=== PATIENT | female | born 1945 | race Caucasian/White ===

== ENCOUNTER → 2016-11-12 | Outpatient (CLI) | payer BC, MEDICARE ==
[2016-04-24 16:24] VITALS: BP 150/67
[~2016-11-12] MED LIST: TRAM-29 PO
--- NOTE | 2016-11-12 09:05 | RAD ---
Examination: 2 views of the chest History: History of congestion. Comparison: 06/21/2016 Findings: The cardiomediastinal silhouette grossly appears unremarkable. There is no acute infiltrate or visualized pneumothorax identified. Ossified granuloma identified in the right midlung, and right hilar calcified lymph nodes grossly similar to prior exam. Impression: No acute cardiopulmonary findings.
== END | disposition home or self-care (01) ==
LOC: DXRADRC 08:25
PROVIDERS: ATTEND Physician Assistant Medical
DX: R09.89 Other specified symptoms and signs involving the circulatory and respiratory systems (principal); R05 Cough
CPT/HCPCS: 71020

== ENCOUNTER → 2016-12-22 | Outpatient (CLI) | payer BC, MEDICARE ==
[2016-04-24 16:24] VITALS: BP 150/67
--- NOTE | 2016-12-22 12:45 | RAD ---
EXAM: MAMMO MARICARMEN SCREENING BILATERAL. HISTORY: Screening. COMPARISON: 12/12/2015 and 11/15/2014. FINDINGS: 2-D and 3-D tomosynthesis mammograms were obtained of both breasts in the CC and MLO projections. Computer-aided detection (CAD) was utilized. The breast parenchyma is heterogeneously dense which could reduce sensitivity of mammography (tissue density C). No dominant suspicious mass, suspicious microcalcifications, or architectural distortion is identified. Small well-circumscribed mass, previously described as a cyst, is again seen in the left breast at 2:00. IMPRESSION: No mammographic evidence of malignancy. BI-RADS CATEGORY: 2 BENIGN FINDING RECOMMENDED FOLLOW-UP: 12M 12 MONTH FOLLOW-UP PQRS compliance statement: Patient information was entered into a reminder system with a target due date for the next mammogram. Mammography is a sensitive method for finding small breast cancers, but it does not detect them all and is not a substitute for careful clinical examination. A negative mammogram does not negate a clinically suspicious finding and should not result in delay in biopsying a clinically suspicious abnormality. "Our facility is accredited by the [employer] Mammography Program."
== END | disposition home or self-care (01) ==
LOC: MAMMO 10:47
PROVIDERS: ATTEND Nurse Practitioner Family
DX: Z12.31 Encounter for screening mammogram for malignant neoplasm of breast (principal)
CPT/HCPCS: 77063; G0202; 77067

== ENCOUNTER → 2016-12-29 | Outpatient (CLI) | payer BC, MEDICARE ==
[2016-04-24 16:24] VITALS: BP 150/67
--- NOTE | 2016-12-29 15:59 | RAD ---
Indication ovarian failure. Screen for osteoporosis/osteopenia. The lumbar spine and right hip were evaluated. Note is made of a previous bone density study 11/12/2014. That study however is not available and no report is available associated without exam. In the lumbar spine the average bone mild density is approximately 1.1 g/cc. The T score of -0.8 is normal. In the right hip the average bone mild density is approximately 0.83 g/cc. Corresponding average T score is -1.4. There is, however, more focal demineralization in the neck where the average bone mineral density is approximately 0.72 g/cc with a corresponding T score of -2.7. IMPRESSION: Normal bone mineral density in the lumbar spine. The right hip is at least osteopenic
== END | disposition home or self-care (01) ==
LOC: DXRAD 15:05
PROVIDERS: ATTEND Nurse Practitioner Family
DX: Z13.820 Encounter for screening for osteoporosis (principal); M85.88 Other specified disorders of bone density and structure, other site; Z78.0 Asymptomatic menopausal state; Z72.0 Tobacco use
CPT/HCPCS: 77080

== ENCOUNTER 2017-04-03 12:15 | Emergency (ER) | payer BC, MEDICARE ==
[~2017-04-03] VITALS: Ht 152.4 cm; Wt 68.0 kg
[~2017-04-03 12:15] MED LIST changes: -TRAM-29 PO; +TRAM-48 PO
[2017-04-03] MEDS ORDERED: PRED-220 PO (12:37)
--- NOTE | 2017-04-03 12:37 | PHYS DOC ---
Past History Past Medical History: CAD, Hypertension, TIA Past Surgical History: Tonsillectomy, Other Alcohol Use: Rarely Drug Use: None Adult General Chief Complaint Chief Complaint: SKIN PROBLEM HPI HPI Patient is a 71 year old female who presents with complaint of rash for the past 5 days. Patient states that she started getting a rash around her left eye as well as on her right hand and left knee which she states was due to exposure to poison reggie at home. Patient states that she was working outside around poison reggie started getting symptoms within one to 2 days. The patient states that she has been having a significant amount of itching associated with her symptoms. Patient went to her primary doctor's office 2 days ago and received a steroid shot at that time. Patient states that this did not resolve her symptoms. Patient denies any drainage to the left eye and denies any pain associated with her rash. Due to worsening symptoms patient came to the emergency department for evaluation. Review of Systems Review of Systems Constitutional: Denies fever or chills [] Eyes: Denies change in visual acuity, redness, or eye pain [] HENT: Denies nasal congestion or sore throat [] Respiratory: Denies cough or shortness of breath [] Cardiovascular: Denies chest pain or edema [] GI: Denies abdominal pain, nausea, vomiting, bloody stools or diarrhea [] : Denies dysuria or hematuria [] Musculoskeletal: Denies back pain or joint pain [] Integument: Skin rash to face, right hand, and left knee [] Neurologic: Denies headache, focal weakness or sensory changes [] Allergies Allergies Allergies Coded Allergies Type Severity Reaction Last Updated Verified Iodinated Contrast Media - IV Dye Allergy Intermediate 04/24/16 Yes Sulfa (Sulfonamide Antibiotics) Allergy Unknown 04/24/16 Yes Physical Exam Physical Exam Constitutional: Well developed, well nourished, no acute distress, non-toxic appearance. [] HENT: Normocephalic, atraumatic, bilateral external ears normal, oropharynx moist, no oral exudates, nose normal. [] Eyes: PERRLA, EOMI, left periorbital erythema present, mild soft tissue swelling , nonindurated, nontender to palpation, conjunctiva normal, no discharge. [] Neck: Normal range of motion, no tenderness, supple, no stridor. [] Cardiovascular:Heart rate regular rhythm, no murmur [] Lungs & Thorax: Bilateral breath sounds clear to auscultation [] Abdomen: Bowel sounds normal, soft, no tenderness, no masses, no pulsatile masses. [] Skin: Warm, dry, linear crop of vesicles on dorsum of right hand and anterior aspect of left knee. [] Back: No tenderness, no CVA tenderness. [] Extremities: No tenderness, no cyanosis, no clubbing, ROM intact, no edema. [] Neurologic: Alert and oriented X 3, normal motor function, normal sensory function, no focal deficits noted. [] Current Patient Data Vital Signs Vital Signs Date Time Temp Pulse Resp B/P (MAP) Pulse Ox O2 Delivery O2 Flow Rate FiO2 04/03/17 12:50 55 18 120/57 (78) 95 Room Air 04/03/17 12:25 98.1 Lab Results None performed EKG EKG Not performed [] Radiology/Procedures Radiology/Procedures Not performed [] Course & Med Decision Making Course & Med Decision Making Pertinent Labs and Imaging studies reviewed. (See chart for details) Patient's symptoms appear consistent with contact dermatitis. It was given 50 mg of oral prednisone in the emergency department. The patient will continue on a prednisone taper for treatment of contact dermatitis. Advised follow-up with primary doctor in 3-5 days if symptoms are not improving and return to emergency department for any worsening symptoms. Patient voiced understanding and in agreement with treatment plan. Dragon Disclaimer Dragon Disclaimer This chart was dictated in whole or in part using Voice Recognition software in a busy, high-work load, and often noisy Emergency Department environment. It may contain unintended and wholly unrecognized errors or omissions. Departure Departure: Impression: Primary Impression: Contact dermatitis Disposition: 01 HOME, SELF-CARE Condition: STABLE Referrals: KAT SAAB APRN (PCP) Patient Instructions: Contact Dermatitis Additional Instructions: Follow-up to primary doctor in 3-5 days. Return to the emergency department for any worsening symptoms. Scripts Prednisone (PREDNISONE) 10 Mg Tablet 10 MG PO UD for PREDNISONE TAPER, #39 TAB 0 Refills Take 3 tablets by mouth twice a day for 3 days, then take 2 tablets by mouth twice a day for 3 days, then take 1 tablet by mouth twice a day for 3 days, then take 1 tablet by mouth daily x 3 days, then stop. Prov: SINDHU PEOPLES MD 04/03/17 Problem Qualifiers Primary Impression: Contact dermatitis Contact dermatitis type: allergic Contact dermatitis trigger: non-food plants Qualified Codes: L23.7 - Allergic contact dermatitis due to plants, except food SINDHU PEOPLES MD Apr 03, 2017 12:37
[2017-04-03 12:50] VITALS: BP 120/57
[2017-04-03] MEDS ORDERED: predniSONE 10 MG TABLET PO ONE (13:15)
== END 2017-04-03 12:57 | disposition home or self-care (01) ==
LOC: ER 12:15
DX: L25.9 Unspecified contact dermatitis, unspecified cause (principal); I25.10 Atherosclerotic heart disease of native coronary artery without angina pectoris; I10 Essential (primary) hypertension; Z86.73 Personal history of transient ischemic attack (TIA), and cerebral infarction without residual deficits; Z88.2 Allergy status to sulfonamides; Z91.041 Radiographic dye allergy status
CPT/HCPCS: 99283

== ENCOUNTER → 2017-07-23 | Outpatient (CLI) | payer BC, MEDICARE ==
[~2017-07-23] MED LIST changes: +PRED-220 PO
[2017-07-23 11:40] LABS: ALBUMIN 3.6 g/dL (3.4-5.0); ALBUMIN/GLOBULIN RATIO 1.1 (1.0-1.7); CALCIUM 9.8 mg/dL (8.5-10.1); CREATININE 0.8 mg/dL (0.6-1.0); GFR 70.3; MAGNESIUM 1.7 mg/dL (1.8-2.4); TOTAL BILIRUBIN 0.6 mg/dL (0.2-1.0); TOTAL PROTEIN 6.9 g/dL (6.4-8.2)
== END | disposition home or self-care (01) ==
LOC: LAB 10:55
PROVIDERS: ATTEND Nurse Practitioner
DX: E78.5 Hyperlipidemia, unspecified (principal); R25.2 Cramp and spasm
CPT/HCPCS: 36415; 80053; 80061; 83735

== ENCOUNTER 2017-08-10 16:52 | Emergency (ER) | payer BC, MEDICARE ==
[~2017-08-10] VITALS: Ht 154.9 cm; Wt 68.0 kg
--- NOTE | 2017-08-10 17:29 | EKG ---
[address] [address] Test Date: 2017-08-10 Test Time: 17:15:35 Pat Name: GOOD LERMA Department: Room: Gender: F Director Game: DENN[place] : 1945 Requested By: MARCIA VALDERRAMA Order Number: [id number] Reading MD: Dominguez Vasquez MD Measurements Intervals Diana Rate: 65 P: 53 WV: 162 QRS: 39 QRSD: 80 T: 51 QT: 372 QTc: 388 Interpretive Statements SINUS RHYTHM Electronically Signed On 08-16-2017 14:19:40 CAN SLIDER by Dominguez Vasquez MD
[2017-08-10] MEDS ORDERED: IV NORMAL SALINE 500ML 500 ML IV ONE (17:45)
--- NOTE | 2017-08-10 17:57 | PHYS DOC ---
Past History Past Medical History: CAD, Hypertension, Hypothyroid, [place], TIA Past Surgical History: Cholecystectomy, Tonsillectomy, Other Alcohol Use: Rarely Drug Use: None Adult General Chief Complaint Chief Complaint: COUGH HPI HPI 71-year-old nonsmoking female patient complaining of cough with clear sputum for the last 2 weeks. Patient complaining of subjective fever and chills that gradually getting worse. Patient complaining of episode of shortness of breath with exertion and during episodes of cough without chest pain, sick contact, vomiting and diarrhea. Patient complaining of nasal congestion and sore throat giving cough and states she was seen at [facility] and treated with ampicillin without improvement of her condition. Review of Systems Review of Systems Constitutional: Reports fever and chills [] Eyes: Denies change in visual acuity, redness, or eye pain [] HENT: Reports nasal congestion , denies sore throat [] Respiratory: Reports cough and shortness of breath [] Cardiovascular: No additional information not addressed in HPI [] GI: Denies abdominal pain, nausea, vomiting, bloody stools or diarrhea [] : Denies dysuria or hematuria [] Musculoskeletal: Denies back pain or joint pain [] Integument: Denies rash or skin lesions [] Neurologic: Denies headache, focal weakness or sensory changes [] Endocrine: Denies polyuria or polydipsia [] All other systems were reviewed and found to be within normal limits, except as documented in this note. Current Medications Current Medications Current Medications Medications (Trade) Dose Ordered Sig/Rita Start Time Stop Time Status Last Admin Dose Admin Albuterol/ Ipratropium (Duoneb) 3 ml 1X ONCE 08/10/17 18:00 08/10/17 18:01 08/10/17 17:43 3 ML Methylprednisolone Sodium Succinate (SOLU-Medrol 125MG VIAL) 125 mg 1X ONCE 08/10/17 18:00 08/10/17 18:01 Sodium Chloride 500 ml @ 0 mls/hr 1X ONCE 08/10/17 17:45 08/10/17 17:46 DC Allergies Allergies Allergies Coded Allergies Type Severity Reaction Last Updated Verified Iodinated Contrast Media - IV Dye Allergy Intermediate 04/24/16 Yes Sulfa (Sulfonamide Antibiotics) Allergy Unknown 04/24/16 Yes Physical Exam Physical Exam Constitutional: Well developed, well nourished, moderate distress, non-toxic appearance. [] HENT: Normocephalic, atraumatic, bilateral external ears normal, oropharynx moist, no oral exudates, nose normal, several cold sores on lips [] Eyes: PERRLA, EOMI, conjunctiva normal, no discharge. [] Neck: Normal range of motion, no tenderness, supple, no stridor. [] Cardiovascular:Heart rate regular rhythm, no murmur [] Lungs & Thorax: Bilateral mild rhonchi Abdomen: Bowel sounds normal, soft, no tenderness, no masses, no pulsatile masses. [] Skin: Warm, dry, no erythema, no rash. [] Back: No tenderness, no CVA tenderness. [] Extremities: No tenderness, no cyanosis, no clubbing, ROM intact, no edema. [] Neurologic: Alert and oriented X 3, normal motor function, normal sensory function, no focal deficits noted. [] Psychologic: Affect normal, judgement normal, mood normal. [] Current Patient Data Vital Signs Vital Signs Date Time Temp Pulse Resp B/P (MAP) Pulse Ox O2 Delivery O2 Flow Rate FiO2 08/10/17 17:44 97 Room Air 08/10/17 16:52 98.1 68 18 EKG EKG [EKG interpreted by me. EKG at 1715 showed] normal sinus rhythm at rate of [address] and T-wave abnormality Radiology/Procedures Radiology/Procedures Chest x-ray showed normal mediastinum and normal heart size no obvious free air pneumothorax or opacity. Course & Med Decision Making Course & Med Decision Making Labs and chest x-ray is pending. Patient's care transferred to incoming ER physician at 1800. Wiliam Davis I took over care at 6 PM and went over results of labs and imaging with patient. Patient says that she is feeling much better after steroid and breathing treatment in the emergency department and she would like to go home. I told her about her elevated BNP and she says that she has had multiple echocardiograms and she has never had any signs or symptoms of congestive heart failure. Certainly her BNP is slightly elevated but nothing too much significance and based off her physical exam this seems more of a upper respiratory infection with postnasal drip that is making her wheeze and be short of breath. She was still wheezing on my examination so I ordered another albuterol treatment and her aeration improved. Patient has normal vital signs including an auction saturation of 96% on room air and she is able to ambulate with no significant shortness of breath. Given patient appears well with normal vital signs benign physical exam and workup she'll be discharged with instructions to use Nasonex [id number] with her albuterol inhaler more often in addition to starting a steroid and Tessalon for cough. Patient aware and agreeable with plan for discharge and verbalized understanding of the need for short-term follow-up in the strict ED return precautions discussed including worsening pain fevers shortness of breath or other general concerns. Dragon Disclaimer Dragon Disclaimer This electronic medical record was generated, in whole or in part, using a voice recognition dictation system. Departure Departure: Impression: Primary Impression: Cough Additional Impression: Elevated brain natriuretic peptide (BNP) level Disposition: 01 HOME, SELF-CARE Condition: STABLE Referrals: KAT SAAB APRN (PCP) Patient Instructions: Upper Respiratory Infection, Adult Additional Instructions: USE OTC NASONEX FOR YOUR SINUS CONGESTION. TAKE THE TESSALON FOR COUGH. USE YOUR ALBUTEROL EVERY 4 HOURS. FOLLOW WITH YOUR PCP LATER THIS WEEK AND COME BACK TO THE ED SOONER WITH WORSENING PAIN, SOA, OR OTHER GENERAL CONCERNS. THANK YOU! Scripts Benzonatate (TESSALON PERLE) 100 Mg Capsule 1 CAP PO TID, #15 CAP Prov: LULU ANDERSON DO 08/10/17 Prednisone (PREDNISONE) 50 Mg Tablet 1 TAB PO DAILY, #4 TAB Prov: LULU ANDERSON DO 08/10/17 Albuterol Sulfate (PROAIR HFA INHALER) 8.5 Gm Hfa.aer.ad 1 PUFF INH PRN Q4HRS Y for SHORTNESS OF BREATH, #1 INHALER 0 Refills Prov: LULU ANDERSON DO 08/10/17 Problem Qualifiers MARCIA VALDERRAMA MD Aug 10, 2017 17:57 LULU ANDERSON DO Aug 10, 2017 19:28
[2017-08-10 17:58] VITALS: BP 130/55
[2017-08-10] MEDS ORDERED: methylPREDNISolone SOD SUCC PF 125 MG/2 ML VIAL. IV ONE (18:00)
[2017-08-10] MEDS ORDERED: IPRATRPIUM/ALBUTEROL 0.5/2.5MG 3 ML NEBU. NEB ONE (18:00)
[2017-08-10 18:04] LABS: ALBUMIN 3.5 g/dL (3.4-5.0); CALCIUM 9.5 mg/dL (8.5-10.1); CREATININE 0.7 mg/dL (0.6-1.0); POTASSIUM 3.7 mmol/L (3.5-5.1); TOTAL BILIRUBIN 0.4 mg/dL (0.2-1.0)
[2017-08-10 18:06] LABS: BASO % 1 % (0-3); EOS # 0.2 x10^3/uL (0.0-0.7); EOS % 4 % (0-3); HEMATOCRIT 38.8 % (36.0-47.0); HEMOGLOBIN 13.2 g/dL (12.0-15.5); LYMPH # 2.2 x10^3/uL (1.0-4.8); LYMPH % 32 % (24-48); MEAN CORPUSCULAR HEMOGLOBIN 30 pg (25-35); MEAN CORPUSCULAR HGB CONC 34 g/dL (31-37); MEAN CORPUSCULAR VOLUME 89 fL (79-100); MONO # 0.6 x10^3/uL (0.0-1.1); MONO % 9 % (0-9); NEUT # 3.8 x10^3uL (1.8-7.7); NEUT % 55 % (31-73); PLATELET COUNT 299 x10^3/uL (140-400); RED BLOOD COUNT 4.38 x10^6/uL (3.50-5.40); RED CELL DISTRIBUTION WIDTH 12.7 % (11.5-14.5)
[2017-08-10] MEDS ORDERED: ALBUTEROL SULFATE 2.5 MG/3 ML NEBU. NEB ONE (18:45)
[2017-08-10] MEDS ORDERED: BENZ100C PO (19:28)
[2017-08-10] MEDS ORDERED: ALBU8.5H8 INH (19:28)
[2017-08-10] MEDS ORDERED: PRED50TA PO (19:28)
--- NOTE | 2017-08-11 07:55 | RAD ---
Indication: Productive cough for 2 weeks. Technique: Two-view chest radiograph was obtained. Comparison is from November 12, 2016. Findings: The lungs are clear. Calcified granuloma on the right is stable. Calcified right hilar lymph nodes are noted. The cardiopulmonary silhouette is within normal limits. There is no pleural effusion. The bony structures are intact. Leads overlie the patient. Impression: No acute thoracic findings.
[2017-08-14] MEDS ORDERED: PRED20TA PO (10:05)
[2017-08-14] MEDS ORDERED: PROM118S2 PO (10:05)
[2017-08-14] MEDS ORDERED: AZIT250T6 PO (10:05)
== END 2017-08-10 19:56 | disposition home or self-care (01) ==
LOC: ER 16:52
DX: R05 Cough (principal); R79.89 Other specified abnormal findings of blood chemistry; I25.10 Atherosclerotic heart disease of native coronary artery without angina pectoris; I10 Essential (primary) hypertension; E03.9 Hypothyroidism, unspecified; I25.2 Old myocardial infarction; Z86.73 Personal history of transient ischemic attack (TIA), and cerebral infarction without residual deficits; Z88.2 Allergy status to sulfonamides; Z91.041 Radiographic dye allergy status
CPT/HCPCS: 99285; J2930; J7040; J7613; J7620; 36415; 71020; 80053; 83605; 83880; 84484; 85025; 87040; 93005; 94640; 96361; 96374

== ENCOUNTER 2017-08-13 12:09 | Observation (INO) | payer BC, MEDICARE ==
[~2017-08-13] VITALS: Ht 154.9 cm; Wt 70.3 kg
[~2017-08-13 12:09] MED LIST changes: +ALBU8.5H8 INH; +BENZ100C PO; +PRED50TA PO
--- NOTE | 2017-08-13 12:26 | ED.ADGEN ---
Past History Past Medical History: CAD, Hypertension, Hypothyroid, [place], TIA Past Surgical History: Cholecystectomy, Tonsillectomy, Other Alcohol Use: Rarely Drug Use: None Adult General HPI HPI Patient is a 71-year-old female complains of cough. 71-year-old female complains of cough. She was seen 2 days earlier and treated with steroids and antibiotics, worse. She's not having copious productive sputum. She is having dyspnea on exertion. She did have a mildly elevated BNP that states in the past she's had normal echoes. She's not been having any fevers. She does have fever blisters to her mouth which started about the same time as a cough. They've also been getting worse. She's not had any oral lesions. No chest pain or peripheral edema. She finished a course of amoxicillin. Review of Systems Review of Systems Constitutional: Denies fever or chills Eyes: Denies change in visual acuity, redness, or eye pain HENT: Denies nasal congestion or sore throat Respiratory:HPI Cardiovascular: No additional information not addressed in HPI GI: Denies abdominal pain, nausea, vomiting, bloody stools or diarrhea : Denies dysuria or hematuria Musculoskeletal: Denies back pain or joint pain Integument: Denies rash or skin lesions Neurologic: Denies headache, focal weakness or sensory changes Endocrine: Denies polyuria or polydipsia All other systems were reviewed and found to be within normal limits, except as documented in this note. Current Medications Current Medications Current Medications Medications (Trade) Dose Ordered Sig/Rita Start Time Stop Time Status Last Admin Dose Admin Albuterol Sulfate (Ventolin) 2.5 mg 1X ONCE 08/13/17 13:15 08/13/17 13:16 DC Azithromycin 500 mg/Sodium Chloride 250 ml @ 250 mls/hr 1X ONCE 08/13/17 13:45 08/13/17 14:44 DC 08/13/17 16:01 250 MLS/HR Ceftriaxone Sodium 1 gm/ Sodium Chloride 50 ml @ 100 mls/hr 1X ONCE 08/13/17 13:45 08/13/17 14:14 DC 08/13/17 15:23 100 MLS/HR Allergies Allergies Allergies Coded Allergies Type Severity Reaction Last Updated Verified Iodinated Contrast- Oral and IV Dye Allergy Intermediate 04/24/16 Yes Sulfa (Sulfonamide Antibiotics) Allergy Unknown 04/24/16 Yes Physical Exam Physical Exam Constitutional: Well developed, well nourished, no acute distress, non-toxic appearance. HENT: Normocephalic, atraumatic, bilateral external ears normal, oropharynx moist, no oral exudates, nose normal. Fever blister around mouth. Eyes: PERRLA, EOMI, conjunctiva normal, no discharge. Neck: Normal range of motion, no tenderness, supple, no stridor. Cardiovascular:Heart rate regular rhythm, no murmur Lungs & Thorax: Bilateral breath sounds clear to auscultation; when she coughs she does bring up stephen colored secretions. Abdomen: Bowel sounds normal, soft, no tenderness, no masses, no pulsatile masses. Skin: Warm, dry, no erythema, no rash. Back: No tenderness, no CVA tenderness. Extremities: No tenderness, no cyanosis, no clubbing, ROM intact, no edema. Neurologic: Alert and oriented X 3, normal motor function, normal sensory function, no focal deficits noted. Psychologic: Affect normal, judgement normal, mood normal. Current Patient Data Vital Signs Vital Signs Date Time Temp Pulse Resp B/P (MAP) Pulse Ox O2 Delivery O2 Flow Rate FiO2 08/13/17 13:47 118/58 (78) 08/13/17 13:17 97 Room Air 08/13/17 12:25 97.8 60 20 Lab Results Laboratory Tests Test 08/13/17 12:50 08/13/17 13:22 White Blood Count 13.8 x10^3/uL (4.0-11.0) #H Red Blood Count 4.59 x10^6/uL (3.50-5.40) Hemoglobin 13.7 g/dL (12.0-15.5) Hematocrit 40.7 % (36.0-47.0) Mean Corpuscular Volume 89 fL (79-100) Mean Corpuscular Hemoglobin 30 pg (25-35) Mean Corpuscular Hemoglobin Concent 34 g/dL (31-37) Red Cell Distribution Width 12.9 % (11.5-14.5) Platelet Count 295 x10^3/uL (140-400) Neutrophils (%) (Auto) 72 % (31-73) Lymphocytes (%) (Auto) 19 % (24-48) L Monocytes (%) (Auto) 9 % (0-9) Eosinophils (%) (Auto) 0 % (0-3) Basophils (%) (Auto) 0 % (0-3) Neutrophils # (Auto) 9.9 x10^3uL (1.8-7.7) H Lymphocytes # (Auto) 2.6 x10^3/uL (1.0-4.8) Monocytes # (Auto) 1.3 x10^3/uL (0.0-1.1) H Eosinophils # (Auto) 0.0 x10^3/uL (0.0-0.7) Basophils # (Auto) 0.0 x10^3/uL (0.0-0.2) Sodium Level 141 mmol/L (136-145) Potassium Level 3.3 mmol/L (3.5-5.1) L Chloride Level 101 mmol/L (98-107) Carbon Dioxide Level 30 mmol/L (21-32) Anion Gap 10 (6-14) Blood Urea Nitrogen 19 mg/dL (7-20) Creatinine 0.9 mg/dL (0.6-1.0) Estimated GFR (Cockcroft-Gault) 61.4 BUN/Creatinine Ratio 21 (6-20) H Glucose Level 119 mg/dL (70-99) H Calcium Level 9.7 mg/dL (8.5-10.1) Total Bilirubin 0.6 mg/dL (0.2-1.0) Aspartate Amino Transferase (AST) 19 U/L (15-37) Alanine Aminotransferase (ALT) 46 U/L (14-59) Alkaline Phosphatase 59 U/L (46-116) Troponin I Quantitative < 0.017 ng/mL (0-0.055) EP-Nom-Y-Type Natriuretic Peptide 329 pg/mL (0-124) H Total Protein 6.8 g/dL (6.4-8.2) Albumin 3.5 g/dL (3.4-5.0) Albumin/Globulin Ratio 1.1 (1.0-1.7) Influenza Type A (Rapid) Negative (NEGATIVE) Influenza Type B (Rapid) Negative (NEGATIVE) EKG EKG NSR with rate of 57 without ischemic changes Radiology/Procedures Radiology/Procedures CXR without pneumonia, chf or infiltrate int by me. Course & Med Decision Making Course & Med Decision Making Pertinent Labs and Imaging studies reviewed. (See chart for details) CXR is clear. Mildly elevated WBC count. BNP is mildly elevated. I will dose with antibiotics and steroids. D/W Dr. Zuniga who will admit. Patient does have an ENT doctor; findings on CT I thik can be addressed as an outpatinet. Dx: cough, difficulty breathing Final Impression Final Impression cough, difficulty breathing Problems: Dragon Disclaimer Dragon Disclaimer This electronic medical record was generated, in whole or in part, using a voice recognition dictation system. CLAIRE ALLRED MD Aug 13, 2017 12:26
--- NOTE | 2017-08-13 12:37 | EKG ---
[address] [address] Test Date: 2017-08-13 Test Time: 12:33:29 Pat Name: GOOD LERMA Department: Room: Gender: F Instantizer Operator: DENN[place] : 1945 Requested By: CLAIRE ALLRED Order Number: [id number] Reading MD: Measurements Intervals [place] Rate: 57 P: 56 WY: 144 QRS: 41 QRSD: 82 T: 38 QT: 400 QTc: 392 Interpretive Statements SINUS RHYTHM NORMAL ECG RI6.01 Unconfirmed report No previous ECG available for comparison
--- NOTE | 2017-08-13 12:58 | RAD ---
AP chest 08/13/2017 Clinical indication: Cough for 2 weeks. Comparison: Chest 08/10/2017. Findings: Cardiac and mediastinal silhouettes are unremarkable. Right hilar and parenchymal calcified granulomas. No pleural effusion, pneumothorax or focal consolidation. Impression: No acute cardiopulmonary abnormality.
[2017-08-13 13:03] LABS: BASO % 0 % (0-3); EOS % 0 % (0-3); HEMATOCRIT 40.7 % (36.0-47.0); HEMOGLOBIN 13.7 g/dL (12.0-15.5); LYMPH # 2.6 x10^3/uL (1.0-4.8); LYMPH % 19 % (24-48); MEAN CORPUSCULAR HEMOGLOBIN 30 pg (25-35); MEAN CORPUSCULAR HGB CONC 34 g/dL (31-37); MEAN CORPUSCULAR VOLUME 89 fL (79-100); MONO # 1.3 x10^3/uL (0.0-1.1); MONO % 9 % (0-9); NEUT # 9.9 x10^3uL (1.8-7.7); NEUT % 72 % (31-73); PLATELET COUNT 295 x10^3/uL (140-400); RED BLOOD COUNT 4.59 x10^6/uL (3.50-5.40); RED CELL DISTRIBUTION WIDTH 12.9 % (11.5-14.5); WHITE BLOOD COUNT 13.8 x10^3/uL (4.0-11.0)
[2017-08-13] MEDS ORDERED: ALBUTEROL SULFATE 2.5 MG/3 ML NEBU. NEB ONE (13:15)
[2017-08-13 13:21] LABS: ALBUMIN 3.5 g/dL (3.4-5.0); ALBUMIN/GLOBULIN RATIO 1.1 (1.0-1.7); CALCIUM 9.7 mg/dL (8.5-10.1); CREATININE 0.9 mg/dL (0.6-1.0); GFR 61.4; POTASSIUM 3.3 mmol/L (3.5-5.1); TOTAL BILIRUBIN 0.6 mg/dL (0.2-1.0); TOTAL PROTEIN 6.8 g/dL (6.4-8.2)
[2017-08-13] MEDS ORDERED: AZITHROMYCIN 500 MG in IV NORMAL SALINE 250ML 250 ML IV ONE (13:45)
[2017-08-13 13:56] LABS: INFLUENZA A PATIENT NEGATIVE (NEGATIVE); INFLUENZA B PATIENT NEGATIVE (NEGATIVE)
[2017-08-13] MEDS ORDERED: methylPREDNISolone SOD SUCC PF 125 MG/2 ML VIAL. IV ONE (14:00)
[2017-08-13 15:00] VITALS: BP 160/72
[2017-08-13] MEDS ORDERED: CARV25TA2 PO (15:32)
[2017-08-13] MEDS ORDERED: LOSA100T6 PO (15:32)
[2017-08-13] MEDS ORDERED: MONT10TA9 PO (15:33)
[2017-08-13] MEDS ORDERED: ATOR10TA60 PO (15:33)
[2017-08-13] MEDS ORDERED: HYDR12.58 PO (15:33)
[2017-08-13] MEDS ORDERED: ASPI-630 PO (15:34)
--- NOTE | 2017-08-13 18:53 | PDOC1 ---
History of Present Illness Reason for Visit: Cough History of Present Illness Pt states she has felt ill for about 2 weeks. 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 Denies fever or hemoptysis. States that a few months ago she was having SOA when she would walk to her car. Says she got her heart checked and it was "fine" per Dr. Valentino. She then saw a eclectic doctor and was told she did not have COPD but since she had childhood asthma, she may have adult asthma. She was started on Singulair and did a lot better after that. With this current illness, she has been seen once at [facility] and given "amoxicillin for a cold." She finished 4 days of a 7 day course. She has taken no other meds other than Robitussin. She was also seen in the ER twice. This time she has been given IV steroids and abx. She denies chest pain , dizziness, fever, weight loss, blurry vision, n/v/d, abd pain, leg swelling, numbness/weakness. She did have a runny nose and sore throat when this all started, but says these have resolved. She smoked from age [age], but quit when she had her first heart attack. Chief Complaint: COUGH Allergies: Coded Allergies: Iodinated Contrast- Oral and IV Dye (Verified Allergy, Intermediate, ) Sulfa (Sulfonamide Antibiotics) (Verified Allergy, Unknown, 04/24/16) Past Medical History Cardiac: CAD, HTN, hyperipidemia Pulmonary: Asthma Past Surgical History: Cholecystectomy, Other (Parathyroidectomy) Family History: No pertinent hx Past Social History Smoke: Quit Alcohol: none Drugs: None Review of Systems Review Of Systems Fourteen system , review of systems has been reviewed. See HPI for pertinent positives and negative responses, other zepeda all other systems are negative, non pertinent or non contributory Allergies: Coded Allergies: Iodinated Contrast- Oral and IV Dye (Verified Allergy, Intermediate, ) Sulfa (Sulfonamide Antibiotics) (Verified Allergy, Unknown, 04/24/16) Medications Current Medications Albuterol Sulfate (Ventolin) 2.5 mg 1X ONCE NEB ; Start 08/13/17 at 13:15; Stop 08/13/17 at 13:16; Status DC Methylprednisolone Sodium Succinate (SOLU-Medrol 125MG VIAL) 125 mg 1X ONCE IV Last administered on 08/13/17 15:12; Start 08/13/17 at 14:00; Stop at 14:01; Status DC Ceftriaxone Sodium 1 gm/ Sodium Chloride 50 ml @ 100 mls/hr 1X ONCE IV Last administered on 08/13/17 15:23; Start 08/13/17 at 13:45; Stop 08/13/17 at 14 :14; Status DC Azithromycin 500 mg/Sodium Chloride 250 ml @ 250 mls/hr 1X ONCE IV Last administered on 08/13/17 16:01; Start 08/13/17 at 13:45; Stop 08/13/17 at 14 :44; Status DC Active Scripts Active Proair Hfa Inhaler (Albuterol Sulfate) 8.5 Gm Hfa.aer.ad 1 Puff INH PRN Q4HRS PRN Reported Aspirin 81 Mg Tab.chew 81 Mg PO DAILY Montelukast Sodium Tablet (Montelukast Sodium) 10 Mg Tablet 1 Tab PO DAILY Hydrochlorothiazide Tablet (Hydrochlorothiazide) 12.5 Mg Tablet 1 Tab PO DAILY Atorvastatin Calcium 10 Mg Tablet 0.5 Tab PO DAILY Carvedilol 25 Mg Tablet 1 Tab PO BID Losartan Potassium 100 Mg Tablet 100 Mg PO DAILY Exam Vital Signs Vital Signs Date Time Temp Pulse Resp B/P (MAP) Pulse Ox O2 Delivery O2 Flow Rate FiO2 08/13/17 15:00 98.4 54 18 160/72 (101) 96 Room Air General Appearance: Alert, Oriented X3, Cooperative, No acute distress HEENT: Atraumatic, PERRLA, EOMI, Mucous membr. moist/pink, Other (Neck supple, full ROM, no JVD, no LAD, no thyromegaly) Respiratory: Other (Breath sounds diminished bilaterally without wheezes, rales , or rhonchi) Heart: Regular rate, Normal S1, Normal S2, No murmurs Abdominal: Soft, No tenderness, No hepatospenomegaly, No masses Extremities: No edema, Normal pulses, No tenderness/swelling Skin: No rashes, No breakdown Neuro: Normal speech, Strength at 5/5 X4 ext, Normal tone, Sensation intact, Cranial nerves 3-12 NL, Reflexes 2+ Psych/Mental Status: Mental status NL, Mood NL Assessment/Plan Assessment/Plan 1. COPD exacerbation: Given pt's hx of smoking, I believe there is likely at least a mild component of COPD. We will treat w/ abx and steroids. Antitussives, nebs. Pt on RA. 2. CAD: Continue home meds. NO chest pain. 3. DVT proph: SCD's, low risk. Pt ambulatory. COURSE Allergies Coded Allergies Type Severity Reaction Last Updated Verified Iodinated Contrast- Oral and IV Dye Allergy Intermediate 04/24/16 Yes Sulfa (Sulfonamide Antibiotics) Allergy Unknown 04/24/16 Yes Laboratory Tests Test 08/13/17 12:50 08/13/17 13:22 White Blood Count 13.8 x10^3/uL (4.0-11.0) Red Blood Count 4.59 x10^6/uL (3.50-5.40) Hemoglobin 13.7 g/dL (12.0-15.5) Hematocrit 40.7 % (36.0-47.0) Mean Corpuscular Volume 89 fL (79-100) Mean Corpuscular Hemoglobin 30 pg (25-35) Mean Corpuscular Hemoglobin Concent 34 g/dL (31-37) Red Cell Distribution Width 12.9 % (11.5-14.5) Platelet Count 295 x10^3/uL (140-400) Neutrophils (%) (Auto) 72 % (31-73) Lymphocytes (%) (Auto) 19 % (24-48) Monocytes (%) (Auto) 9 % (0-9) Eosinophils (%) (Auto) 0 % (0-3) Basophils (%) (Auto) 0 % (0-3) Neutrophils # (Auto) 9.9 x10^3uL (1.8-7.7) Lymphocytes # (Auto) 2.6 x10^3/uL (1.0-4.8) Monocytes # (Auto) 1.3 x10^3/uL (0.0-1.1) Eosinophils # (Auto) 0.0 x10^3/uL (0.0-0.7) Basophils # (Auto) 0.0 x10^3/uL (0.0-0.2) Sodium Level 141 mmol/L (136-145) Potassium Level 3.3 mmol/L (3.5-5.1) Chloride Level 101 mmol/L (98-107) Carbon Dioxide Level 30 mmol/L (21-32) Anion Gap 10 (6-14) Blood Urea Nitrogen 19 mg/dL (7-20) Creatinine 0.9 mg/dL (0.6-1.0) Estimated GFR (Cockcroft-Gault) 61.4 BUN/Creatinine Ratio 21 (6-20) Glucose Level 119 mg/dL (70-99) Calcium Level 9.7 mg/dL (8.5-10.1) Total Bilirubin 0.6 mg/dL (0.2-1.0) Aspartate Amino Transf (AST/SGOT) 19 U/L (15-37) Alanine Aminotransferase (ALT/SGPT) 46 U/L (14-59) Alkaline Phosphatase 59 U/L (46-116) Troponin I Quantitative < 0.017 ng/mL (0-0.055) KV-Rmf-Q-Type Natriuretic Peptide 329 pg/mL (0-124) Total Protein 6.8 g/dL (6.4-8.2) Albumin 3.5 g/dL (3.4-5.0) Albumin/Globulin Ratio 1.1 (1.0-1.7) Influenza Type A (Rapid) Negative (NEGATIVE) Influenza Type B (Rapid) Negative (NEGATIVE) Current Medications Medications (Trade) Dose Ordered Sig/Rita Route PRN Reason Start Time Stop Time Status Last Admin Dose Admin Albuterol Sulfate (Ventolin) 2.5 mg 1X ONCE NEB 08/13/17 13:15 08/13/17 13:16 DC Methylprednisolone Sodium Succinate (SOLU-Medrol 125MG VIAL) 125 mg 1X ONCE IV 08/13/17 14:00 08/13/17 14:01 DC 08/13/17 15:12 Ceftriaxone Sodium 1 gm/ Sodium Chloride 50 ml @ 100 mls/hr 1X ONCE IV 08/13/17 13:45 08/13/17 14:14 DC 08/13/17 15:23 Azithromycin 500 mg/Sodium Chloride 250 ml @ 250 mls/hr 1X ONCE IV 08/13/17 13:45 08/13/17 14:44 DC 08/13/17 16:01 Vital Signs Date Time Temp Pulse Resp B/P (MAP) Pulse Ox O2 Delivery O2 Flow Rate FiO2 08/13/17 15:00 98.4 54 18 160/72 (101) 96 Room Air AP chest 08/13/2017 Clinical indication: Cough for 2 weeks. Comparison: Chest 08/10/2017. Findings: Cardiac and mediastinal silhouettes are unremarkable. Right hilar and parenchymal calcified granulomas. No pleural effusion, pneumothorax or focal consolidation. Impression: No acute cardiopulmonary abnormality. MONY HART MD Aug 13, 2017 18:53
[2017-08-13 18:56] VITALS: BP 115/63
[2017-08-13] MEDS ORDERED: ALBUTEROL SULFATE 2.5 MG/3 ML NEBU. NEB PRN (19:00)
[2017-08-13 19:35] LABS: BILIRUBIN,URINE NEG (NEG); CLARITY,URINE CLEAR; COLOR,URINE YELLOW; GLUCOSE,URINE NEG (NEG); NITRITE,URINE NEG (NEG); UROBILINOGEN,URINE 0.2 mg/dL (0.2 mg/dL)
[2017-08-13 19:36] LABS: BACTERIA,URINE 0 /HPF (0-FEW); SQUAMOUS EPITHELIAL CELL,UR MOD /LPF
[2017-08-13] MEDS ORDERED: PROMETH/CODEINE 6.25/10MG 5 ML SYRUP. PO PRN (20:15)
[2017-08-13] MEDS: BENZONATATE 100 MG CAPSULE. PO SCH (20:35)
[2017-08-13] MEDS ORDERED: ATORVASTATIN CALCIUM 10 MG TABLET. PO SCH (21:00)
[2017-08-13 22:20] VITALS: BP 146/69
[2017-08-14 05:46] VITALS: BP 142/65
[2017-08-14 07:30] LABS: BASO % 0 % (0-3); EOS % 0 % (0-3); HEMOGLOBIN 13.1 g/dL (12.0-15.5); LYMPH # 1.3 x10^3/uL (1.0-4.8); LYMPH % 12 % (24-48); MEAN CORPUSCULAR HEMOGLOBIN 30 pg (25-35); MEAN CORPUSCULAR HGB CONC 34 g/dL (31-37); MEAN CORPUSCULAR VOLUME 88 fL (79-100); MONO # 0.6 x10^3/uL (0.0-1.1); MONO % 6 % (0-9); NEUT # 9.2 x10^3uL (1.8-7.7); NEUT % 83 % (31-73); PLATELET COUNT 311 x10^3/uL (140-400); RED BLOOD COUNT 4.43 x10^6/uL (3.50-5.40); RED CELL DISTRIBUTION WIDTH 12.9 % (11.5-14.5); WHITE BLOOD COUNT 11.2 x10^3/uL (4.0-11.0)
[2017-08-14 07:44] LABS: ALBUMIN 3.1 g/dL (3.4-5.0); ALBUMIN/GLOBULIN RATIO 0.9 (1.0-1.7); CALCIUM 9.3 mg/dL (8.5-10.1); CREATININE 0.8 mg/dL (0.6-1.0); GFR 70.3; POTASSIUM 3.9 mmol/L (3.5-5.1); TOTAL BILIRUBIN 0.3 mg/dL (0.2-1.0); TOTAL PROTEIN 6.4 g/dL (6.4-8.2)
[2017-08-14] MEDS ORDERED: ASPIRIN 81 MG TAB.CHEW PO SCH (08:00)
[2017-08-14] MEDS ORDERED: CARVEDILOL 12.5 MG TABLET PO SCH (08:00)
[2017-08-14] MEDS ORDERED: AZITHROMYCIN 250 MG TABLET. PO SCH (09:00)
[2017-08-14] MEDS ORDERED: predniSONE 20 MG TABLET PO SCH (09:00)
[2017-08-14] MEDS ORDERED: MONTELUKAST 10 MG TABLET. PO SCH (09:00)
[2017-08-14] MEDS ORDERED: LOSARTAN 50 MG TABLET. PO SCH (09:00)
[2017-08-14] MEDS ORDERED: hydroCHLOROthiazide 12.5 MG CAPSULE PO SCH (09:00)
[2017-08-14] MEDS: BENZONATATE 100 MG CAPSULE. PO SCH (09:13)
[2017-08-14] MEDS ORDERED: PROM118S2 PO (10:05)
[2017-08-14] MEDS ORDERED: PRED20TA PO (10:05)
[2017-08-14] MEDS ORDERED: AZIT250T6 PO (10:05)
--- NOTE | 2017-08-14 10:08 | DISCH ---
DISCHARGE INSTRUCTIONS-DC Condition on Discharge Condition on Discharge: Stable Problems: Activity after Discharge Activity Instructions for Disc: Activity as tolerated Diet after Discharge Diet after Discharge: Cardiac Checks after Discharge Checks after discharge: Check your Temp as needed Contacting the DRRoselyn after DC Call your doctor for: If your condition worsens Follow-Up Follow up with: PCP next week MONY HART MD Aug 14, 2017 10:08
--- NOTE | 2017-08-14 10:12 | PDOC3 ---
Discharge Summary Discharge Summary Date of Admission Date of Admission: Aug 13, 2017 at 13:55 Admitting Diagnosis Dyspnea COPD exacerbation, acute on chronic Date of Discharge: Aug 14, 2017 Discharge Diagnosis COPD exacerbation. Laboratory Findings Laboratory Tests Test 08/13/17 12:50 08/13/17 13:22 08/13/17 16:05 08/14/17 06:59 White Blood Count 13.8 x10^3/uL (4.0-11.0) 11.2 x10^3/uL (4.0-11.0) Red Blood Count 4.59 x10^6/uL (3.50-5.40) 4.43 x10^6/uL (3.50-5.40) Hemoglobin 13.7 g/dL (12.0-15.5) 13.1 g/dL (12.0-15.5) Hematocrit 40.7 % (36.0-47.0) 39.0 % (36.0-47.0) Mean Corpuscular Volume 89 fL (79-100) 88 fL (79-100) Mean Corpuscular Hemoglobin 30 pg (25-35) 30 pg (25-35) Mean Corpuscular Hemoglobin Concent 34 g/dL (31-37) 34 g/dL (31-37) Red Cell Distribution Width 12.9 % (11.5-14.5) 12.9 % (11.5-14.5) Platelet Count 295 x10^3/uL (140-400) 311 x10^3/uL (140-400) Neutrophils (%) (Auto) 72 % (31-73) 83 % (31-73) Lymphocytes (%) (Auto) 19 % (24-48) 12 % (24-48) Monocytes (%) (Auto) 9 % (0-9) 6 % (0-9) Eosinophils (%) (Auto) 0 % (0-3) 0 % (0-3) Basophils (%) (Auto) 0 % (0-3) 0 % (0-3) Neutrophils # (Auto) 9.9 x10^3uL (1.8-7.7) 9.2 x10^3uL (1.8-7.7) Lymphocytes # (Auto) 2.6 x10^3/uL (1.0-4.8) 1.3 x10^3/uL (1.0-4.8) Monocytes # (Auto) 1.3 x10^3/uL (0.0-1.1) 0.6 x10^3/uL (0.0-1.1) Eosinophils # (Auto) 0.0 x10^3/uL (0.0-0.7) 0.0 x10^3/uL (0.0-0.7) Basophils # (Auto) 0.0 x10^3/uL (0.0-0.2) 0.0 x10^3/uL (0.0-0.2) Sodium Level 141 mmol/L (136-145) 142 mmol/L (136-145) Potassium Level 3.3 mmol/L (3.5-5.1) 3.9 mmol/L (3.5-5.1) Chloride Level 101 mmol/L (98-107) 104 mmol/L (98-107) Carbon Dioxide Level 30 mmol/L (21-32) 28 mmol/L (21-32) Anion Gap 10 (6-14) 10 (6-14) Blood Urea Nitrogen 19 mg/dL (7-20) 20 mg/dL (7-20) Creatinine 0.9 mg/dL (0.6-1.0) 0.8 mg/dL (0.6-1.0) Estimated GFR (Cockcroft-Gault) 61.4 70.3 BUN/Creatinine Ratio 21 (6-20) 25 (6-20) Glucose Level 119 mg/dL (70-99) 144 mg/dL (70-99) Calcium Level 9.7 mg/dL (8.5-10.1) 9.3 mg/dL (8.5-10.1) Total Bilirubin 0.6 mg/dL (0.2-1.0) 0.3 mg/dL (0.2-1.0) Aspartate Amino Transf (AST/SGOT) 19 U/L (15-37) 15 U/L (15-37) Alanine Aminotransferase (ALT/SGPT) 46 U/L (14-59) 48 U/L (14-59) Alkaline Phosphatase 59 U/L (46-116) 56 U/L (46-116) Troponin I Quantitative < 0.017 ng/mL (0-0.055) CG-Alv-O-Type Natriuretic Peptide 329 pg/mL (0-124) Total Protein 6.8 g/dL (6.4-8.2) 6.4 g/dL (6.4-8.2) Albumin 3.5 g/dL (3.4-5.0) 3.1 g/dL (3.4-5.0) Albumin/Globulin Ratio 1.1 (1.0-1.7) 0.9 (1.0-1.7) Influenza Type A (Rapid) Negative (NEGATIVE) Influenza Type B (Rapid) Negative (NEGATIVE) Urine Collection Type Unknown Urine Color Yellow Urine Clarity Clear Urine pH 6.0 Urine Specific [place] <=1.005 Urine Protein Neg (NEG-TRACE) Urine Glucose (UA) Neg mg/dL (NEG) Urine Ketones (Stick) Neg mg/dL (NEG) Urine Blood Trace (NEG) Urine Nitrite Neg (NEG) Urine Bilirubin Neg (NEG) Urine Urobilinogen Dipstick 0.2 mg/dL (0.2 mg/dL) Urine Leukocyte Esterase Mod (NEG) Urine RBC 3-5 /HPF (0-2) Urine WBC 5-10 /HPF (0-4) Urine Squamous Epithelial Cells Mod /LPF Urine Transitional Epithelial Cells Occ /LPF Urine Bacteria 0 /HPF (0-FEW) Urine Mucus Slight /LPF Hospital Course Pt had 2 weeks of cough and SOA. Hx of smoking, 33 pack/yr hx. Hx of CAD. Pt treated w/ IV steroids and abx. WBC down from 13K to 11K in 1 day. Feeling better. Pt can take PO meds at home, and is not requiring O2. Plan to send home w/ close f/u with her PCP. Continue PRN albuterol and Singulair. Rx for prednisone burst, Zithromax, and PRN codeine cough medicine. EXAM: A&O x 3 NAD CV: RRR, no m/r/g Chest: Diminished BS in bases, otherwise clear w/ normal resp effort Neck: No JVD, no LAD OP: MMM Abd: Soft NTTP Skin: Cold sores on lips Condition at Discharge: Stable/improved Home Meds Active Scripts Promethazine Hcl/Codeine (PROMETHAZINE-CODEINE SYRUP) 118 Ml Syrup, 5 ML PO PRN Q6HRS Y for COUGH, #4 OZ Prov:MONY HART MD 08/14/17 Albuterol Sulfate (PROAIR HFA INHALER) 8.5 Gm Hfa.aer.ad, 1 PUFF INH PRN Q4HRS Y for SHORTNESS OF BREATH, #1 INHALER 0 Refills Prov:LULU ANDERSON DO 08/10/17 Reported Medications Aspirin (ASPIRIN) 81 Mg Tab.chew, 81 MG PO DAILY, TAB 08/13/17 Montelukast Sodium (MONTELUKAST SODIUM TABLET) 10 Mg Tablet, 1 TAB PO DAILY, # 30 TAB 5 Refills 08/13/17 Hydrochlorothiazide (HYDROCHLOROTHIAZIDE TABLET) 12.5 Mg Tablet, 1 TAB PO DAILY , #30 TAB 5 Refills 08/13/17 Atorvastatin Calcium (ATORVASTATIN CALCIUM) 10 Mg Tablet, 0.5 TAB PO DAILY, #30 TAB 5 Refills 08/13/17 Carvedilol (CARVEDILOL) 25 Mg Tablet, 1 TAB PO BID, #180 TAB 1 Refill 08/13/17 Losartan Potassium (LOSARTAN POTASSIUM) 100 Mg Tablet, 100 MG PO DAILY, TAB 08/13/17 Inpatient Meds Current Medications Albuterol Sulfate (Ventolin) 2.5 mg 1X ONCE NEB ; Start 08/13/17 at 13:15; Stop 08/13/17 at 13:16; Status DC Methylprednisolone Sodium Succinate (SOLU-Medrol 125MG VIAL) 125 mg 1X ONCE IV Last administered on 08/13/17t 15:12; Start 08/13/17 at 14:00; Stop at 14:01; Status DC Ceftriaxone Sodium 1 gm/ Sodium Chloride 50 ml @ 100 mls/hr 1X ONCE IV Last administered on 08/13/17 15:23; Start 08/13/17 at 13:45; Stop 08/13/17 at 14 :14; Status DC Azithromycin 500 mg/Sodium Chloride 250 ml @ 250 mls/hr 1X ONCE IV Last administered on 08/13/17t 16:01; Start 08/13/17 at 13:45; Stop 08/13/17 at 14 :44; Status DC Albuterol Sulfate (Ventolin) 2.5 mg PRN Q6HRS PRN NEB SHORTNESS OF BREATH; Start 08/13/17 at 19:00 Benzonatate (Tessalon Perle) 100 mg [id number] PO Last administered on 08/14/17 09:13; Start 08/13/17 at 21:00 Prednisone (Prednisone) 20 mg BID PO Last administered on 08/14/17 09:13; Start 08/14/17 at 09:00 Azithromycin (Zithromax) 250 mg DAILY PO Last administered on 08/14/17 09:13 ; Start 08/14/17 at 09:00; Stop 08/17/17 at 09:01 Aspirin (Children'S Aspirin) 81 mg DAILY08 PO Last administered on 08/14/17 09:13; Start 08/14/17 at 08:00 Atorvastatin Calcium (Lipitor) 5 mg QHS PO Last administered on 08/13/17 20: 35; Start 08/13/17 at 21:00 Montelukast Sodium (Singulair) 10 mg DAILY PO Last administered on 08/14/17 09:12; Start 08/14/17 at 09:00 Carvedilol (Coreg) 25 mg BIDWMEALS PO Last administered on 08/14/17 09:12; Start 08/14/17 at 08:00 Hydrochlorothiazide (Microzide) 12.5 mg DAILY PO Last administered on 09:11; Start 08/14/17 at 09:00 Losartan Potassium (Cozaar) 100 mg DAILY PO Last administered on 08/14/17 09: 12; Start 08/14/17 at 09:00 Promethazine HCl/ Codeine (Phenergan With Codeine) 5 ml PRN Q6HRS PRN PO COUGH Last administered on 08/13/17 20:37; Start 08/13/17 at 20:15 Active Scripts Active Promethazine-Codeine Syrup (Promethazine Hcl/Codeine) 118 Ml Syrup 5 Ml PO PRN Q6HRS PRN Proair Hfa Inhaler (Albuterol Sulfate) 8.5 Gm Hfa.aer.ad 1 Puff INH PRN Q4HRS PRN Reported Aspirin 81 Mg Tab.chew 81 Mg PO DAILY Montelukast Sodium Tablet (Montelukast Sodium) 10 Mg Tablet 1 Tab PO DAILY Hydrochlorothiazide Tablet (Hydrochlorothiazide) 12.5 Mg Tablet 1 Tab PO DAILY Atorvastatin Calcium 10 Mg Tablet 0.5 Tab PO DAILY Carvedilol 25 Mg Tablet 1 Tab PO BID Losartan Potassium 100 Mg Tablet 100 Mg PO DAILY Activity: as tolerated Diet: Cardiac Follow-up Plan F/u with PCP in 1 week. MONY HART MD Aug 14, 2017 10:12
[2017-08-14 10:43] VITALS: BP 112/54
== END 2017-08-14 11:00 | disposition home or self-care (01) ==
LOC: ER 12:09 → INTOOBSV 13:55 → ICU 13:55 → 1 SOUTH 21:47
PROVIDERS: ADMIT Family Medicine; ATTEND Family Medicine
DX: J44.1 Chronic obstructive pulmonary disease with (acute) exacerbation (principal); E03.9 Hypothyroidism, unspecified; I10 Essential (primary) hypertension; E78.5 Hyperlipidemia, unspecified; I25.10 Atherosclerotic heart disease of native coronary artery without angina pectoris; Z79.82 Long term (current) use of aspirin; Z79.899 Other long term (current) drug therapy; Z86.73 Personal history of transient ischemic attack (TIA), and cerebral infarction without residual deficits; Z87.891 Personal history of nicotine dependence; Z90.49 Acquired absence of other specified parts of digestive tract; Z88.2 Allergy status to sulfonamides; Z88.8 Allergy status to other drugs, medicaments and biological substances
CPT/HCPCS: 36415; 71010; 71020; 80053; 81001; 83605; 83880; 84484; 85025; 87040; 87086; 87641; 87804; 93005; 94640; 96365; 96367; 96375; 99285; G0378; G0379; J0456; J0696; J2930; J7050; J7512

== ENCOUNTER 2018-01-12 11:22 | Emergency (ER) | payer BC, MEDICARE ==
[~2018-01-12] VITALS: Ht 154.9 cm; Wt 70.3 kg
[~2018-01-12 11:22] MED LIST changes: +ASPI-630 PO; +ATOR10TA60 PO; +AZIT250T6 PO; +CARV25TA2 PO; +HYDR12.58 PO; +LOSA100T6 PO; +MONT10TA9 PO; +PRED20TA PO; +PROM118S2 PO
--- NOTE | 2018-01-12 12:07 | RAD ---
4 views right knee 01/12/2018 11:55 AM Indication: PAIN, TWISTED YESTERDAY INCREASED PAIN WHEN BENDING Comparison: None available Findings: There is no acute fracture or dislocation. Articular surfaces are uninterupted and smooth. Soft tissues are unremarkable. Impression: No radiographic evidence of acute osseous abnormality. Electronically signed by: Mika Marie MD (01/12/2018 12:03 PM) [id number]
[2018-01-12] MEDS ORDERED: TRAM50TA PO (12:45)
--- NOTE | 2018-01-12 12:45 | PHYS DOC ---
Past History Past Medical History: CAD, Hypertension, Hypothyroid, MS, TIA Past Surgical History: Cholecystectomy, Tonsillectomy, Other Alcohol Use: None Drug Use: None Adult General Chief Complaint Chief Complaint: KNEE INJURY HPI HPI 72-year-old female patient with history of chronic right knee pain states she twisted her right knee yesterday and felt a pop in her knee and since then has sharp and throbbing pain in her knee that getting worse with walking and bending her knee. Patient denies focal neuro deficit, calf pain, history of DVT , fever and chills. Patient states she took Tylenol without improvement of her pain. Review of Systems Review of Systems Constitutional: Denies fever or chills [] Eyes: Denies change in visual acuity, redness, or eye pain [] HENT: Denies nasal congestion or sore throat [] Respiratory: Denies cough or shortness of breath [] Cardiovascular: No additional information not addressed in HPI [] GI: Denies abdominal pain, nausea, vomiting, bloody stools or diarrhea [] : Denies dysuria or hematuria [] Musculoskeletal: Denies back pain, reports joint pain [] Integument: Denies rash or skin lesions [] Neurologic: Denies headache, focal weakness or sensory changes [] Endocrine: Denies polyuria or polydipsia [] All other systems were reviewed and found to be within normal limits, except as documented in this note. Allergies Allergies Allergies Coded Allergies Type Severity Reaction Last Updated Verified Iodinated Contrast- Oral and IV Dye Allergy Intermediate 04/24/16 Yes Sulfa (Sulfonamide Antibiotics) Allergy Unknown 04/24/16 Yes Physical Exam Physical Exam Constitutional: Well developed, well nourished,mild distress, non-toxic appearance. [] HENT: Normocephalic, atraumatic Eyes: PERRLA, EOMI, conjunctiva normal, no discharge. [] Neck: Normal range of motion, no tenderness, supple, no stridor. [] Cardiovascular:Heart rate regular rhythm, no murmur [] Lungs & Thorax: Bilateral breath sounds clear to auscultation [] Extremities: No deformity, right knee with mild tenderness and painful range of motion without neurovascular deficit or edema Neurologic: Alert and oriented X 3, normal motor function, normal sensory function, no focal deficits noted. [] Psychologic: Affect normal, judgement normal, mood normal. [] EKG EKG [] Radiology/Procedures Radiology/Procedures [][place] [address] IMAGING REPORT Signed PATIENT: GOOD LERMA ACCOUNT: [id number] : 1945 LOCATION: ER AGE: 72 SEX: F EXAM STATUS: REG ER ORD. PHYSICIAN: MARCIA VALDERRAMA MD REASON: pain PROCEDURE: KNEE RIGHT 4V 4 views right knee 01/12/2018 11:55 AM Indication: PAIN, TWISTED YESTERDAY INCREASED PAIN WHEN BENDING Comparison: None available Findings: There is no acute fracture or dislocation. Articular surfaces are uninterupted and smooth. Soft tissues are unremarkable. Impression: No radiographic evidence of acute osseous abnormality. Electronically signed by: Mika Robles MD (01/12/2018 12:03 PM) [id number] DICTATED AND SIGNED BY: MIKA ROBLES MD DATE: 01/12/18 1202 CC: KAT SAAB APRN; MARCIA VALDERRAMA MD ~ Course & Med Decision Making Course & Med Decision Making Pertinent Imaging studies reviewed. (See chart for details) [[place] of patient in ER showed 72-year-old female patient with history of chronic knee pain and twisting injury yesterday with unremarkable physical exam except for limited range of motion. X-ray did not show acute finding. Jared wrap was applied and patient instructed to follow with her primary care physician and prescription for tramadol was given.] Dragon Disclaimer Dragon Disclaimer This electronic medical record was generated, in whole or in part, using a voice recognition dictation system. Departure Departure: Impression: Primary Impression: Strain of right knee Disposition: HOME, SELF-CARE (At 1245) Condition: STABLE Referrals: KAT SAAB APRN (PCP) Patient Instructions: Knee Sprain Additional Instructions: Apply ice on the affected area Follow-up with your primary care physician in 3-5 days Return to ER if not getting better Scripts Tramadol Hcl (TRAMADOL HCL) 50 Mg Tablet 50 MG PO PRN Q6HRS PRN for PAIN, #20 TAB Prov: MARCIA VALDERRAMA MD 01/12/18 MARCIA VALDERRAMA MD January 12, 2018 12:45
[2018-01-12 13:07] VITALS: BP 193/85
== END 2018-01-12 13:10 | disposition home or self-care (01) ==
LOC: ER 11:22
DX: S86.811A Strain of other muscle(s) and tendon(s) at lower leg level, right leg, initial encounter (principal); G89.29 Other chronic pain; I25.10 Atherosclerotic heart disease of native coronary artery without angina pectoris; I10 Essential (primary) hypertension; E03.9 Hypothyroidism, unspecified; I25.2 Old myocardial infarction; Z86.73 Personal history of transient ischemic attack (TIA), and cerebral infarction without residual deficits; Z88.2 Allergy status to sulfonamides; Z91.041 Radiographic dye allergy status; X50.1XXA Overexertion from prolonged static or awkward postures, initial encounter; Y93.89 Activity, other specified; Y99.8 Other external cause status; Y92.89 Other specified places as the place of occurrence of the external cause
CPT/HCPCS: 73564; 99284

== ENCOUNTER → 2018-01-20 | Outpatient (CLI) | payer MEDICARE, BC ==
[2018-01-12 13:07] VITALS: BP 193/85
[~2018-01-20] MED LIST changes: +TRAM50TA PO
--- NOTE | 2018-01-20 14:51 | RAD ---
EXAM: MAMMO MARICARMEN SCREENING BILATERAL. HISTORY: Screening. COMPARISON: December 22, 2016, December 12, 2015, November 15, 2014. FINDINGS: 2-D and 3-D tomosynthesis mammograms were obtained of both breasts in the CC and MLO projections. Computer-aided detection (CAD) was utilized. The breast parenchyma shows scattered fibroglandular densities. Breast parenchyma level B. No dominant suspicious mass, suspicious microcalcifications, or architectural distortion is identified. Small well-circumscribed mass involving the upper outer left breast which was previously described as a cyst is unchanged. IMPRESSION: No evidence of malignancy. BI-RADS CATEGORY: 2 BENIGN FINDING RECOMMENDED FOLLOW-UP: 12M 12 MONTH FOLLOW-UP PQRS compliance statement: Patient information was entered into a reminder system with a target due date for the next mammogram. Mammography is a sensitive method for finding small breast cancers, but it does not detect them all and is not a substitute for careful clinical examination. A negative mammogram does not negate a clinically suspicious finding and should not result in delay in biopsying a clinically suspicious abnormality. "Our facility is accredited by the [employer] Mammography Program."
== END | disposition home or self-care (01) ==
LOC: MAMMO 10:04
PROVIDERS: ATTEND Nurse Practitioner Family
DX: Z12.31 Encounter for screening mammogram for malignant neoplasm of breast (principal)
CPT/HCPCS: 77063; 77067

== ENCOUNTER 2018-04-03 15:44 | Emergency (ER) | payer BC, MEDICARE ==
[~2018-04-03] VITALS: Ht 154.9 cm; Wt 67.6 kg
[~2018-04-03 15:44] MED LIST changes: -PROM118S2 PO; +PROM118S5 PO
[2018-04-03] MEDS ORDERED: ONDANSETRON PF 4 MG/2 ML VIAL. IV ONE (16:15)
[2018-04-03 16:35] LABS: BASO % 0 % (0-3); EOS # 0.2 x10^3/uL (0.0-0.7); EOS % 2 % (0-3); HEMATOCRIT 45.3 % (36.0-47.0); HEMOGLOBIN 15.2 g/dL (12.0-15.5); LYMPH # 2.4 x10^3/uL (1.0-4.8); LYMPH % 33 % (24-48); MEAN CORPUSCULAR HEMOGLOBIN 30 pg (25-35); MEAN CORPUSCULAR HGB CONC 34 g/dL (31-37); MEAN CORPUSCULAR VOLUME 89 fL (79-100); MONO # 0.8 x10^3/uL (0.0-1.1); MONO % 11 % (0-9); NEUT % 54 % (31-73); PLATELET COUNT 267 x10^3/uL (140-400); RED BLOOD COUNT 5.08 x10^6/uL (3.50-5.40); RED CELL DISTRIBUTION WIDTH 13.4 % (11.5-14.5); WHITE BLOOD COUNT 7.4 x10^3/uL (4.0-11.0)
--- NOTE | 2018-04-03 16:46 | RAD ---
RS Compliance Statement: One or more of the following individualized dose reduction techniques were utilized for this examination: 1. Automated exposure control 2. Adjustment of the mA and/or kV according to patient size 3. Use of iterative reconstruction technique CT head without contrast 04/03/2018 4:30 PM INDICATION: Dizziness for one week COMPARISON: None available TECHNIQUE: Multiple axial CT images of the head were obtained from skull base through the vertex without intravenous contrast. FINDINGS: Head: Ventricles, sulci and basal cisterns are prominent compatible with mild generalized cerebral volume loss. There is no hydrocephalus. [place]-white matter differentiation is normal. There is no acute intracranial hemorrhage. There is no mass, mass effect or midline shift. Posterior fossa is normal in appearance. Atherosclerotic calcifications are visualized involving the cavernous segments of the internal carotid arteries. Dural based calcifications are present. Visualized portions of the orbits are normal. Paranasal sinuses are well aerated. Mastoid air cells are well aerated. Scalp and calvaria are normal. IMPRESSION: No acute intracranial hemorrhage. Electronically signed by: Crystal Sheppard MD (04/03/2018 4:43 PM) [id number]
--- NOTE | 2018-04-03 16:52 | EKG ---
[address] [address] Test Date: 2018-04-03 Test Time: 16:17:31 Pat Name: GOOD LERMA Department: Room: Gender: F Client Services Assistant: : 1945 Requested By: MARCIA VALDERRAMA Order Number: [id number] Reading MD: Measurements Intervals [place] Rate: 59 P: 56 NE: 162 QRS: 26 QRSD: 82 T: 38 QT: 386 QTc: 386 Interpretive Statements SINUS RHYTHM NORMAL ECG RI6.01 Unconfirmed report No previous ECG available for comparison
--- NOTE | 2018-04-03 16:55 | RAD ---
Chest, 2 views, 04/03/2018: HISTORY: Dizziness Comparison is made to a study from 08/13/2017. The heart size is normal. There is calcific plaquing of the aorta. There are granulomatous calcifications in the right chest. No pulmonary infiltrate is seen. There is no evidence of pleural fluid. Mild degenerative changes are evident in the spine. IMPRESSION: No acute cardiopulmonary abnormality is detected. Electronically signed by: Marcel Medina MD (04/03/2018 4:52 PM) [facility]
[2018-04-03 16:58] LABS: ALBUMIN 3.7 g/dL (3.4-5.0); CALCIUM 9.8 mg/dL (8.5-10.1); CREATININE 0.7 mg/dL (0.6-1.0); GFR 81.8; POTASSIUM 3.5 mmol/L (3.5-5.1); TOTAL BILIRUBIN 0.5 mg/dL (0.2-1.0); TOTAL PROTEIN 7.3 g/dL (6.4-8.2)
[2018-04-03 17:23] VITALS: BP 169/62
[2018-04-03 17:40] LABS: BACTERIA,URINE FEW /HPF (0-FEW); BILIRUBIN,URINE NEG (NEG); CLARITY,URINE HAZY; COLOR,URINE STRAW; GLUCOSE,URINE NEG (NEG); NITRITE,URINE NEG (NEG); RBC,URINE OCC /HPF (0-2); SQUAMOUS EPITHELIAL CELL,UR MOD /LPF; UROBILINOGEN,URINE 0.2 mg/dL (0.2 mg/dL)
[2018-04-03] MEDS ORDERED: MECL12.52 PO (18:01)
[2018-04-03] MEDS ORDERED: ONDA4TAB10 SL (18:01)
[2018-04-03] MEDS ORDERED: CIPR250T30 PO (18:01)
--- NOTE | 2018-04-03 18:01 | PHYS DOC ---
Past History Past Medical History: High Cholesterol, Hypertension Past Surgical History: Cholecystectomy Alcohol Use: None Drug Use: None Adult General Chief Complaint Chief Complaint: DIZZY/LIGHT HEADED HPI HPI 72-year-old female patient complaining of intermittent episodes of dizziness for the last 1 week that getting constant for the last 48 hours. Patient complaining of increasing of stiffness with movement of her head and standing position and denies chest pain, shortness of breath, nausea and vomiting, blurred vision, headache, change of hearing. Patient complaining of chronic tinnitus without new change. Patient states she was seen by her primary care physician and treated with [id number] antihistamines without improvement of her condition and per recommendation of her sister took medication for motion sickness with worsening of her condition. Review of Systems Review of Systems Constitutional: Denies fever or chills [] Eyes: Denies change in visual acuity, redness, or eye pain [] HENT: Denies nasal congestion or sore throat [] Respiratory: Denies cough or shortness of breath [] Cardiovascular: No additional information not addressed in HPI [] GI: Denies abdominal pain, nausea, vomiting, bloody stools or diarrhea [] : Denies dysuria or hematuria [] Musculoskeletal: Denies back pain or joint pain [] Integument: Denies rash or skin lesions [] Neurologic: Denies headache, focal weakness or sensory changes [] Endocrine: Denies polyuria or polydipsia [] All other systems were reviewed and found to be within normal limits, except as documented in this note. Current Medications Current Medications Current Medications Medications (Trade) Dose Ordered Sig/Rita Start Time Stop Time Status Last Admin Dose Admin Ondansetron HCl (Zofran) 4 mg 1X ONCE 04/03/18 16:15 04/03/18 16:23 DC 04/03/18 16:21 4 MG Allergies Allergies Allergies Coded Allergies Type Severity Reaction Last Updated Verified Iodinated Contrast- Oral and IV Dye Allergy Intermediate 04/03/18 Yes Sulfa (Sulfonamide Antibiotics) Allergy Unknown 04/03/18 Yes Physical Exam Physical Exam Constitutional: Well developed, well nourished, mild distress, non-toxic appearance. [] HENT: Normocephalic, atraumatic, bilateral external ears normal, oropharynx moist, no oral exudates, nose normal. [] Eyes: PERRLA, EOMI, conjunctiva normal, no discharge. [] Neck: Normal range of motion, no tenderness, supple, no stridor. [] Cardiovascular:Heart rate regular rhythm, no murmur [] Lungs & Thorax: Bilateral breath sounds clear to auscultation [] Abdomen: Bowel sounds normal, soft, no tenderness, no masses, no pulsatile masses. [] Skin: Warm, dry, no erythema, no rash. [] Back: No tenderness, no CVA tenderness. [] Extremities: No tenderness, no cyanosis, no clubbing, ROM intact, no edema. [] Neurologic: Alert and oriented X 3, normal motor function, normal sensory function, no focal deficits noted. [] Psychologic: Affect normal, judgement normal, mood normal. [] Current Patient Data Vital Signs Vital Signs Date Time Temp Pulse Resp B/P (MAP) Pulse Ox O2 Delivery O2 Flow Rate FiO2 04/03/18 17:23 61 18 169/62 (97) 95 Room Air 04/03/18 15:54 98.5 Lab Results Laboratory Tests Test 04/03/18 16:15 04/03/18 17:07 White Blood Count 7.4 x10^3/uL (4.0-11.0) Red Blood Count 5.08 x10^6/uL (3.50-5.40) Hemoglobin 15.2 g/dL (12.0-15.5) Hematocrit 45.3 % (36.0-47.0) Mean Corpuscular Volume 89 fL (79-100) Mean Corpuscular Hemoglobin 30 pg (25-35) Mean Corpuscular Hemoglobin Concent 34 g/dL (31-37) Red Cell Distribution Width 13.4 % (11.5-14.5) Platelet Count 267 x10^3/uL (140-400) Neutrophils (%) (Auto) 54 % (31-73) Lymphocytes (%) (Auto) 33 % (24-48) Monocytes (%) (Auto) 11 % (0-9) H Eosinophils (%) (Auto) 2 % (0-3) Basophils (%) (Auto) 0 % (0-3) Neutrophils # (Auto) 4.0 x10^3uL (1.8-7.7) Lymphocytes # (Auto) 2.4 x10^3/uL (1.0-4.8) Monocytes # (Auto) 0.8 x10^3/uL (0.0-1.1) Eosinophils # (Auto) 0.2 x10^3/uL (0.0-0.7) Basophils # (Auto) 0.0 x10^3/uL (0.0-0.2) Prothrombin Time 10.4 SEC (9.4-11.4) Prothrombin Time INR 1.0 (0.9-1.1) Sodium Level 141 mmol/L (136-145) Potassium Level 3.5 mmol/L (3.5-5.1) Chloride Level 104 mmol/L (98-107) Carbon Dioxide Level 30 mmol/L (21-32) Anion Gap 7 (6-14) Blood Urea Nitrogen 20 mg/dL (7-20) Creatinine 0.7 mg/dL (0.6-1.0) Estimated GFR (Cockcroft-Gault) 81.8 BUN/Creatinine Ratio 29 (6-20) H Glucose Level 107 mg/dL (70-99) H Lactic Acid Level 1.0 mmol/L (0.4-2.0) Calcium Level 9.8 mg/dL (8.5-10.1) Magnesium Level 2.0 mg/dL (1.8-2.4) Total Bilirubin 0.5 mg/dL (0.2-1.0) Aspartate Amino Transferase (AST) 17 U/L (15-37) Alanine Aminotransferase (ALT) 33 U/L (14-59) Alkaline Phosphatase 81 U/L (46-116) Creatine Kinase 47 U/L (26-192) Creatine Kinase MB (Mass) 1.0 ng/mL (0.0-3.6) Creatine Kinase MB Relative Index 2.1 % (0-4) Troponin I Quantitative < 0.017 ng/mL (0-0.055) DN-Wdu-E-Type Natriuretic Peptide 90 pg/mL (0-124) Total Protein 7.3 g/dL (6.4-8.2) Albumin 3.7 g/dL (3.4-5.0) Albumin/Globulin Ratio 1.0 (1.0-1.7) Urine Collection Type Unknown Urine Color Straw Urine Clarity Hazy Urine pH 6.5 Urine Specific [place] 1.015 Urine Protein Neg (NEG-TRACE) Urine Glucose (UA) Neg mg/dL (NEG) Urine Ketones (Stick) Neg mg/dL (NEG) Urine Blood Small (NEG) Urine Nitrite Neg (NEG) Urine Bilirubin Neg (NEG) Urine Urobilinogen Dipstick 0.2 mg/dL (0.2 mg/dL) Urine Leukocyte Esterase Mod (NEG) Urine RBC Occ /HPF (0-2) Urine WBC 5-10 /HPF (0-4) Urine Squamous Epithelial Cells Mod /LPF Urine Bacteria Few /HPF (0-FEW) EKG EKG EKG interpreted by me. EKG at 1619 showed normal sinus rhythm at rate of 60, no acute ST and T-wave abnormalities[] Radiology/Procedures Radiology/Procedures [[address] [address] IMAGING REPORT Signed PATIENT: GOOD LERMA ACCOUNT: [id number] : 1945 LOCATION: ER AGE: 72 SEX: F EXAM STATUS: REG ER ORD. PHYSICIAN: MARCIA VALDERRAMA MD REASON: dizziness PROCEDURE: CHEST PA & LATERAL Chest, 2 views, 04/03/2018: HISTORY: Dizziness Comparison is made to a study from 08/13/2017. The heart size is normal. There is calcific plaquing of the aorta. There are granulomatous calcifications in the right chest. No pulmonary infiltrate is seen. There is no evidence of pleural fluid. Mild degenerative changes are evident in the spine. IMPRESSION: No acute cardiopulmonary abnormality is detected. Electronically signed by: Marcel Medina MD (04/03/2018 4:52 PM) [facility] DICTATED AND SIGNED BY: MARCEL MEDINA MD DATE: 04/03/18 9290 CC: MARCIA VALDERRAMA MD; BORIS HARRIS PA ~ ][address] [address] IMAGING REPORT Signed PATIENT: GOOD LERMA ACCOUNT: [id number] : 1945 LOCATION: ER AGE: 72 SEX: F EXAM STATUS: REG ER ORD. PHYSICIAN: MARCIA VALDERRAMA MD REASON: dizziness PROCEDURE: CT HEAD WO CONTRAST PQRS Compliance Statement: One or more of the following individualized dose reduction techniques were utilized for this examination: 1. Automated exposure control 2. Adjustment of the mA and/or kV according to patient size 3. Use of iterative reconstruction technique CT head without contrast 04/03/2018 4:30 PM INDICATION: Dizziness for one week COMPARISON: None available TECHNIQUE: Multiple axial CT images of the head were obtained from skull base through the vertex without intravenous contrast. FINDINGS: Head: Ventricles, sulci and basal cisterns are prominent compatible with mild generalized cerebral volume loss. There is no hydrocephalus. [place]-white matter differentiation is normal. There is no acute intracranial hemorrhage. There is no mass, mass effect or midline shift. Posterior fossa is normal in appearance. Atherosclerotic calcifications are visualized involving the cavernous segments of the internal carotid arteries. Dural based calcifications are present. Visualized portions of the orbits are normal. Paranasal sinuses are well aerated. Mastoid air cells are well aerated. Scalp and calvaria are normal. IMPRESSION: No acute intracranial hemorrhage. Electronically signed by: Jessie Farr MD (04/03/2018 4:43 PM) [id number] DICTATED AND SIGNED BY: JESSIE FARR MD DATE: 04/03/18 164 CC: MARCIA VALDERRAMA MD; BORIS HARRIS ~ Course & Med Decision Making Course & Med Decision Making Pertinent Labs and Imaging studies reviewed. (See chart for details) Evaluation of patient in ER showed 72-year-old female patient with intermittent episodes of dizziness that getting more constant and change with position. Patient had unremarkable physical exam and CT head and chest x-ray and labs except for mild UTI. Patient treated with Zofran without change of her condition. Patient had a stable vital signs. Patient didn't want hospitalization and wanted to try outpatient treatment. Dragon Disclaimer Dragon Disclaimer This electronic medical record was generated, in whole or in part, using a voice recognition dictation system. Departure Departure: Impression: Primary Impression: Benign positional vertigo Additional Impressions: Urinary tract infection Uncontrolled hypertension Disposition: HOME, SELF-CARE (at 1800) Condition: IMPROVED Referrals: BORIS HARRIS (PCP) Patient Instructions: Benign Positional Vertigo, Hypertension, Urinary Tract Infection Additional Instructions: Drink plenty of liquids Follow-up with your primary care physician in 3-5 days Return to ER if not getting better Scripts Ciprofloxacin Hcl (CIPRO) 250 Mg Tablet 1 TAB PO BID, #6 TAB Prov: MARCIA VALDERRAMA MD 04/03/18 Ondansetron (ZOFRAN ODT) 4 Mg Tab.rapdis 1 TAB SL Q8HRS, #15 TAB Prov: MARCIA VALDERRAMA MD 04/03/18 Meclizine Hcl (MECLIZINE HCL) 12.5 Mg Tablet 1 TAB PO TID, #30 TAB Prov: MARCIA VALDERRAMA MD 04/03/18 Problem Qualifiers MARCIA VALDERRAMA MD Apr 03, 2018 18:01
== END 2018-04-03 18:05 | disposition home or self-care (01) ==
LOC: ER 15:44
DX: R42 Dizziness and giddiness (principal); N39.0 Urinary tract infection, site not specified; I10 Essential (primary) hypertension; E78.00 Pure hypercholesterolemia, unspecified; Z88.2 Allergy status to sulfonamides; Z91.041 Radiographic dye allergy status
CPT/HCPCS: 36415; 70450; 71046; 80053; 81001; 82553; 83605; 83735; 83880; 84484; 85025; 85610; 87086; 93005; 96374; 99285; J2405

== ENCOUNTER 2018-08-02 05:39 | Emergency (ER) | payer MEDICARE ==
[~2018-08-02] VITALS: Ht 152.4 cm; Wt 68.0 kg
[~2018-08-02 05:39] MED LIST changes: +CIPR250T30 PO; +LOSA100T14 PO; -LOSA100T6 PO; +MECL12.52 PO; +ONDA4TAB10 SL
[2018-08-02] MEDS ORDERED: HYDROcodone/APAP 5/325MG 1 TAB TABLET PO ONE (06:15)
[2018-08-02] MEDS ORDERED: ONDANSETRON ODT 4 MG TAB.RAPDIS PO ONE (06:15)
[2018-08-02] MEDS ORDERED: HYDR-3165 PO (07:01)
--- NOTE | 2018-08-02 07:01 | PHYS DOC ---
Past History Past Medical History: Asthma, CAD, High Cholesterol, Heart Disease, Hypertension Past Surgical History: Cholecystectomy Alcohol Use: Rarely Drug Use: None Adult General Chief Complaint Chief Complaint: RIB PAIN HPI HPI 72-year-old female presents with right-sided chest injury. She states last night she was dancing and lifted her partner and pulled something in her right chest. She states it hurts when she takes a deep breath or moves in any direction especially rotation. She denies any fever chills or sweats. She denies any cough or congestion. She states the pain is currently moderate to severe and has not been able to find any position to keep her comfortable. Review of Systems Review of Systems Constitutional: Denies fever or chills [] Eyes: Denies change in visual acuity, redness, or eye pain [] HENT: Denies nasal congestion or sore throat [] Respiratory: Denies cough or shortness of breath [] Cardiovascular: No additional information not addressed in HPI [] GI: Denies abdominal pain, nausea, vomiting, bloody stools or diarrhea [] : Denies dysuria or hematuria [] Musculoskeletal: Denies back pain or joint pain [] Integument: Denies rash or skin lesions [] Neurologic: Denies headache, focal weakness or sensory changes [] Endocrine: Denies polyuria or polydipsia [] All other systems were reviewed and found to be within normal limits, except as documented in this note Current Medications Current Medications Current Medications Medications (Trade) Dose Ordered Sig/Rita Start Time Stop Time Status Last Admin Dose Admin Acetaminophen/ Hydrocodone Bitart (Lortab 5/325) 1 tab 1X ONCE 08/02/18 06:15 08/02/18 06:52 DC 08/02/18 06:22 1 TAB Ondansetron HCl (Zofran Odt) 4 mg 1X ONCE 08/02/18 06:15 08/02/18 06:52 DC 08/02/18 06:22 4 MG Allergies Allergies Allergies Coded Allergies Type Severity Reaction Last Updated Verified Iodinated Contrast- Oral and IV Dye Allergy Intermediate 04/03/18 Yes Sulfa (Sulfonamide Antibiotics) Allergy Unknown 04/03/18 Yes Physical Exam Physical Exam Constitutional: Well developed, well nourished, no acute distress, non-toxic appearance. [] HENT: Normocephalic, atraumatic, bilateral external ears normal, oropharynx moist, no oral exudates, nose normal. [] Eyes: PERRLA, EOMI, conjunctiva normal, no discharge. [] Neck: Normal range of motion, no tenderness, supple, no stridor. [] Cardiovascular:Heart rate regular rhythm, no murmur [] Lungs & Thorax right chest is tender to palp which completely reproduces his symptoms[] Abdomen: Bowel sounds normal, soft, no tenderness, no masses, no pulsatile masses. [] Skin: Warm, dry, no erythema, no rash. [] Back: No tenderness, no CVA tenderness. [] Extremities: No tenderness, no cyanosis, no clubbing, ROM intact, no edema. [] Neurologic: Alert and oriented X 3, normal motor function, normal sensory function, no focal deficits noted. [] Psychologic: Anxious. [] Current Patient Data Vital Signs Vital Signs Date Time Temp Pulse Resp B/P (MAP) Pulse Ox O2 Delivery O2 Flow Rate FiO2 08/02/18 06:22 24 97 Room Air 08/02/18 05:50 98.0 60 EKG EKG [] Radiology/Procedures Radiology/Procedures Right rib with PA chest: Negative exam as interpreted by me[] Course & Med Decision Making Course & Med Decision Making Pertinent Labs and Imaging studies reviewed. (See chart for details) [ED course: Evaluation reveals a 72-year-old female with right chest injury. She was given a [place] and Zofran here which did help alleviate her symptoms. I interpreted her rib x-ray as nothing acute especially no pneumothorax or obvious rib fracture. I did let her know that I certainly could have missed a subtle rib fracture but the treatment would be the same.] Dragon Disclaimer Dragon Disclaimer This electronic medical record was generated, in whole or in part, using a voice recognition dictation system. Departure Departure: Impression: Primary Impression: Musculoskeletal chest pain Disposition: 01 HOME, SELF-CARE Condition: STABLE Referrals: BORIS AHRRIS (PCP) Patient Instructions: Muscle Strain Additional Instructions: Take medication as directed. Return to the emergency department with any new or concerning symptoms. If her symptoms have not improved follow with your primary care physician in the next 1-2 days. Scripts Hydrocodone Bit/Acetaminophen (NORCO 5-325 TABLET) 1 Each Tablet 1 TAB PO Q4-6HRS for PAIN, #15 TAB Prov: LATISHA MEDEIROS DO 08/02/18 LATISHA MEDEIROS DO Aug 02, 2018 07:01
[2018-08-02 07:41] VITALS: BP 158/55
--- NOTE | 2018-08-02 07:48 | RAD ---
Right RIBS with chest, 3 views, 08/02/2018: HISTORY: Right rib pain, injury There is a cortical discontinuity along the anterolateral aspect of the right seventh rib suggesting a nondisplaced fracture. Correlation with the site of the patient's current pain is suggested in determining whether this is a recent injury. No other rib abnormality is detected. There is no evidence of underlying pneumothorax, hemothorax or pulmonary infiltrate. Old healed granulomatous disease is present in the right chest. The heart size is normal. IMPRESSION: Nondisplaced fracture of the right seventh rib. Electronically signed by: Marcel Medina MD (08/02/2018 7:44 AM) [facility]
== END 2018-08-02 07:43 | disposition home or self-care (01) ==
LOC: ER 05:39
DX: S22.31XA Fracture of one rib, right side, initial encounter for closed fracture (principal); J45.909 Unspecified asthma, uncomplicated; I25.10 Atherosclerotic heart disease of native coronary artery without angina pectoris; E78.00 Pure hypercholesterolemia, unspecified; I11.9 Hypertensive heart disease without heart failure; Z91.041 Radiographic dye allergy status; Z88.2 Allergy status to sulfonamides; X50.0XXA Overexertion from strenuous movement or load, initial encounter; Y93.41 Activity, dancing; Y92.89 Other specified places as the place of occurrence of the external cause; Y99.8 Other external cause status
CPT/HCPCS: 71101; 99283; Q0162

== ENCOUNTER → 2018-12-20 | Outpatient (CLI) | payer MEDICARE ==
[~2018-12-20] MED LIST changes: +ALBU2.5V8 INH; -ALBU8.5H8 INH; +HYDR-3165 PO
[2018-12-20 12:34] LABS: ALBUMIN 3.8 g/dL (3.4-5.0); ALBUMIN/GLOBULIN RATIO 1.1 (1.0-1.7); CREATININE 0.8 mg/dL (0.6-1.0); GFR 69.9; POTASSIUM 4.1 mmol/L (3.5-5.1); TOTAL BILIRUBIN 0.7 mg/dL (0.2-1.0); TOTAL PROTEIN 7.4 g/dL (6.4-8.2)
== END | disposition home or self-care (01) ==
LOC: LAB 12:01
PROVIDERS: ATTEND Nurse Practitioner
DX: E78.5 Hyperlipidemia, unspecified (principal)
CPT/HCPCS: 36415; 80053; 80061

== ENCOUNTER → 2019-01-23 | Outpatient (CLI) | payer MEDICARE ==
--- NOTE | 2019-01-23 16:30 | RAD ---
DATE: 01/23/2019 EXAM: MAMMO MARICARMEN SCREENING BILATERAL HISTORY: Routine screening COMPARISON: 01/20/2018 This study was interpreted with the benefit of Computerized Aided Detection (CAD). Breast Density: HETERO The breast parenchyma is heterogenously dense, which could reduce sensitivity of mammography. Breast parenchyma level C. FINDINGS: 2-D and 3-D tomosynthesis imaging was performed in CC and MLO projections. There is an unchanged smooth nodule in the lateral aspect of the left breast. No new or enlarging breast densities are seen. There are scattered benign type calcifications in both breasts. A cluster of microcalcifications in the posteromedial aspect of the left breast has progressed slightly. IMPRESSION: Clustered microcalcifications medially in the left breast. Magnification and straight mediolateral views are suggested for optimal characterization. BI-RADS CATEGORY: 0 INCOMPLETE: NEEDS ADDITIONAL IMAGING EVALUATION AND/OR PRIOR MAMMOGRAMS FOR COMPARISON. RECOMMENDED FOLLOW-UP: ADD ADDITIONAL IMAGING PQRS compliance statement: Patient information was entered into a reminder system with a target due date for the next mammogram. Mammography is a sensitive method for finding small breast cancers, but it does not detect them all and is not a substitute for careful clinical examination. A negative mammogram does not negate a clinically suspicious finding and should not result in delay in biopsying a clinically suspicious abnormality. "Our facility is accredited by the [employer] Mammography [employer]."
== END | disposition home or self-care (01) ==
LOC: MAMMO 11:08
PROVIDERS: ATTEND Family Medicine
DX: Z12.31 Encounter for screening mammogram for malignant neoplasm of breast (principal); N64.89 Other specified disorders of breast
CPT/HCPCS: 77063; 77067

== ENCOUNTER → 2019-01-24 | Outpatient (CLI) | payer MEDICARE ==
--- NOTE | 2019-01-24 11:38 | RAD ---
DATE: 01/24/2019 EXAM: DIGITAL DIAGNOSTIC LT HISTORY: Suspicious screening study COMPARISON: 01/15/2019 This study was interpreted with the benefit of Computerized Aided Detection (CAD). Breast Density: HETERO The breast parenchyma is heterogenously dense, which could reduce sensitivity of mammography. Breast parenchyma level C. FINDINGS: Additional views of left breast were obtained and correlated with the screening images. They confirm the presence of a cluster of microcalcifications in the upper inner left breast. These consist of a coarse benign type calcification as well as several adjacent nonspecific calcifications. The findings are most likely benign. There are a few other scattered benign type calcifications in the left breast. IMPRESSION: Probably benign left breast microcalcifications. Follow-up left mammography in 6 months and bilateral mammography at one year is suggested BI-RADS CATEGORY: 3 PROBABLY BENIGN FINDING(S)-SHORT INTERVAL FOLLOW-UP SUGGESTED RECOMMENDED FOLLOW-UP: 6M 6 MONTH FOLLOW-UP PQRS compliance statement: Patient information was entered into a reminder system with a target due date for the next mammogram. Mammography is a sensitive method for finding small breast cancers, but it does not detect them all and is not a substitute for careful clinical examination. A negative mammogram does not negate a clinically suspicious finding and should not result in delay in biopsying a clinically suspicious abnormality. "Our facility is accredited by the [employer] Mammography Program."
== END | disposition home or self-care (01) ==
LOC: MAMMO 10:56
PROVIDERS: ATTEND Physician Assistant
DX: N64.89 Other specified disorders of breast (principal)
CPT/HCPCS: 77065

== ENCOUNTER → 2019-02-02 | Outpatient (CLI) | payer MEDICARE ==
[2019-02-02 10:02] LABS: ALBUMIN 3.7 g/dL (3.4-5.0); ALBUMIN/GLOBULIN RATIO 1.2 (1.0-1.7); CALCIUM 9.9 mg/dL (8.5-10.1); CREATININE 0.9 mg/dL (0.6-1.0); TOTAL BILIRUBIN 0.5 mg/dL (0.2-1.0); TOTAL PROTEIN 6.9 g/dL (6.4-8.2)
== END | disposition home or self-care (01) ==
LOC: LAB 09:17
PROVIDERS: ATTEND Nurse Practitioner
DX: E78.5 Hyperlipidemia, unspecified (principal)
CPT/HCPCS: 36415; 80053; 80061

== ENCOUNTER → 2019-07-09 | Outpatient (CLI) | payer MEDICARE ==
[~2019-07-09] MED LIST changes: +MONT10TA80 PO; -MONT10TA9 PO
--- NOTE | 2019-07-09 13:45 | RAD ---
DATE: 06/29/2019 EXAM: MAMMO MARICARMEN ROMINAG HISTORY: Abnormal mammogram COMPARISON: 12/22/2016, 01/20/2018, 01/23/2019 screen mammographic images, 01/24/2019 left unilateral callback images This study was interpreted with the benefit of Computerized Aided Detection (CAD). Breast Density: HETERO The breast parenchyma is heterogenously dense, which could reduce sensitivity of mammography. Breast parenchyma level C. FINDINGS: Benign-appearing calcification noted posterior left inner breast are stable. Small mass of the left upper-outer breast has remained stable compared to multiple prior exams. IMPRESSION: Stable BI-RADS CATEGORY: 3 PROBABLY BENIGN FINDING(S)-SHORT INTERVAL FOLLOW-UP SUGGESTED RECOMMENDED FOLLOW-UP: 6M 6 MONTH FOLLOW-UP. Follow-up including spot magnification imaging of the left inner breast calcifications is recommended at the time of annual screening. PQRS compliance statement: Patient information was entered into a reminder system with a target due date for the next mammogram. Mammography is a sensitive method for finding small breast cancers, but it does not detect them all and is not a substitute for careful clinical examination. A negative mammogram does not negate a clinically suspicious finding and should not result in delay in biopsying a clinically suspicious abnormality. "Our facility is accredited by the [employer] Mammography Program."
== END | disposition home or self-care (01) ==
LOC: MAMMO 13:09
PROVIDERS: ATTEND Physician Assistant
DX: N63.21 Unspecified lump in the left breast, upper outer quadrant (principal)
CPT/HCPCS: 77065; G0279; 77061

== ENCOUNTER → 2019-07-25 | Outpatient (CLI) | payer MEDICARE ==
[2019-07-25 09:54] LABS: BASO % 0 % (0-3); EOS # 0.3 x10^3/uL (0.0-0.7); EOS % 2 % (0-3); HEMATOCRIT 40.2 % (36.0-47.0); HEMOGLOBIN 13.5 g/dL (12.0-15.5); LYMPH # 1.3 x10^3/uL (1.0-4.8); LYMPH % 12 % (24-48); MEAN CORPUSCULAR HEMOGLOBIN 30 pg (25-35); MEAN CORPUSCULAR HGB CONC 34 g/dL (31-37); MEAN CORPUSCULAR VOLUME 90 fL (79-100); MONO % 9 % (0-9); NEUT # 8.1 x10^3uL (1.8-7.7); NEUT % 76 % (31-73); PLATELET COUNT 310 x10^3/uL (140-400); RED BLOOD COUNT 4.45 x10^6/uL (3.50-5.40); RED CELL DISTRIBUTION WIDTH 12.7 % (11.5-14.5); WHITE BLOOD COUNT 10.7 x10^3/uL (4.0-11.0)
[2019-07-25 09:55] LABS: ALBUMIN 3.7 g/dL (3.4-5.0); ALBUMIN/GLOBULIN RATIO 0.9 (1.0-1.7); CALCIUM 9.7 mg/dL (8.5-10.1); CREATININE 1.1 mg/dL (0.6-1.0); GFR 48.4; POTASSIUM 3.5 mmol/L (3.5-5.1); TOTAL BILIRUBIN 0.8 mg/dL (0.2-1.0); TOTAL PROTEIN 7.6 g/dL (6.4-8.2)
--- NOTE | 2019-07-25 09:55 | RAD ---
Study: CT abdomen and pelvis without contrast Indication: Severe right lower quadrant abdominal pain. Comparison: None. Technique: Helical CT imaging performed of the abdomen and pelvis without the use of intravenous contrast. Sagittal and coronal reformats were obtained. One or more of the following individualized dose reduction techniques were utilized for this examination: 1. Automated exposure control 2. Adjustment of the mA and/or kV according to patient size 3. Use of iterative reconstruction technique. Findings: Most notable findings: In the setting of essentially pancolonic diverticulosis, mild acute diverticulitis involving a short segment of the sigmoid colon within the deep pelvis as best appreciated on image 95 series 2. Nodular focus along the undersurface of the colon this region, image 96 series 2, is favored to represent the inflamed diverticuli. Surrounding fatty stranding without free air or abscess formation. Additional observations: Small right lower lobe groundglass nodule measuring 2.5 mm on image 11 series 2. Partially visualized calcific coronary artery disease. Numerous splenic granulomas. Simple exophytic renal cyst off the inferior pole of the right kidney. Calcified uterine fibroids. Extensive calcific coronary artery disease involving the aorta and iliofemoral systems. No aneurysmal dilatation. Incomplete evaluation for any associated flow-limiting stenosis without contrast. The most dense calcifications involve the left common iliac artery. Scattered osseous degenerative changes most notable at the lower lumbar spine, particularly L5-S1, as well as at the pubic symphysis. Unremarkable liver, pancreas, left kidney, adrenal glands, small bowel and ovaries. Incomplete evaluation of the stomach on account of underdistention and the lack of oral contrast. The gallbladder is surgically absent. Impression: 1. Findings consistent with short segment diverticulitis involving the mid to distal sigmoid colon. Nodular focus off the undersurface of the sigmoid colon in this region is most compatible with the inflamed diverticuli. No uncontained perforation or abscess. 2. Very small right lower lobe groundglass nodule measuring 2.5 mm. This does not warrant dedicated follow-up based on size. If there are risk factors for lung malignancy, optional CT of the chest could be performed in one year. 3. Additional chronic observations as detailed above. Electronically signed by: EVANGELINA STREETER MD (07/25/2019 9:53 AM) [facility]
== END | disposition home or self-care (01) ==
LOC: PMG 09:09
PROVIDERS: ATTEND Physician Assistant Medical
DX: K57.92 Diverticulitis of intestine, part unspecified, without perforation or abscess without bleeding (principal); R91.8 Other nonspecific abnormal finding of lung field; I25.10 Atherosclerotic heart disease of native coronary artery without angina pectoris; I70.8 Atherosclerosis of other arteries; I70.0 Atherosclerosis of aorta; D25.9 Leiomyoma of uterus, unspecified; N28.1 Cyst of kidney, acquired
CPT/HCPCS: 36415; 74176; 80053; 85025

== ENCOUNTER → 2020-01-04 | Outpatient (CLI) | payer MEDICARE ==
[~2020-01-04] MED LIST changes: -MECL12.52 PO; +MECL12.573 PO
--- NOTE | 2020-01-04 13:31 | RAD ---
DATE: 01/04/2020 12:45 PM EXAM: MAMMO [facility] HISTORY: 74-year-old woman due for mammographic screening presents for short-term follow-up left breast probably benign calcifications COMPARISON: Left diagnostic mammogram of 07/09/2019, 01/24/2019, bilateral screening mammogram of 01/23/2019 and 01/20/2018. Bilateral CC and MLO views of the breasts were performed. Magnification CC and ML views of the left breast were also obtained. Bilateral breast tomosynthesis was performed in CC and MLO projections. This study was interpreted with the benefit of Computerized Aided Detection (CAD). FINDINGS: Breast Density: HETERO The breast parenchyma Is heterogeneously dense, which could reduce sensitivity of mammography. Breast parenchyma level C The calcifications in the posterior upper inner quadrant left breast show no suspicious interval change favored to reflect hyalinization of a small fibroadenoma. A few punctate benign-appearing calcifications the right breast are also noted. No suspicious masses, suspicious microcalcifications or architectural distortion is present to suggest malignancy in either breast. The visualized axillae are unremarkable. IMPRESSION: No mammographic evidence of malignancy. BI-RADS CATEGORY: 2 BENIGN FINDING(S) RECOMMENDED FOLLOW-UP: 12M 12 MONTH FOLLOW-UP Annual screening mammography is recommended, unless clinically indicated sooner based on symptoms or change in physical exam. PQRS compliance statement: Patient information was entered into a reminder system with a target due date for the next mammogram. Mammography is a sensitive method for finding small breast cancers, but it does not detect them all and is not a substitute for careful clinical examination. A negative mammogram does not negate a clinically suspicious finding and should not result in delay in biopsying a clinically suspicious abnormality. "Our facility is accredited by the [employer] Mammography [employer]."
== END ==
LOC: MAMMO 12:30
PROVIDERS: ATTEND Family Medicine
DX: Z09 Encounter for follow-up examination after completed treatment for conditions other than malignant neoplasm (principal); R92.1 Mammographic calcification found on diagnostic imaging of breast
CPT/HCPCS: 77066; G0279; 77062

== ENCOUNTER → 2021-01-07 | Outpatient (CLI) | payer MEDICARE ==
[~2021-01-07] MED LIST changes: -MECL12.573 PO; +MECL12.582 PO
--- NOTE | 2021-01-07 14:24 | RAD ---
History: Routine Screening 3-D DIGITAL MAMMOGRAPHY 3-D digital breast tomosynthesis images of both breasts in the CC and MLO projections were performed. Computer aided detection (CAD) was utilized. Previous: 2018 and 2019. The breast tissue is heterogeneously dense, which could obscure detection of small masses (Category C density). Bilateral breast nodularity is stable. There are no new suspicious masses, suspicious micr ocalcifications or areas of architectural distortion. IMPRESSION: Negative mammogram. Patient information was entered into the reminder system with a tar get due date for the next screening mammogram of January 08, 2022. Routine annual screening mammogram in one year advised. BI-RADS Category 2 benign finding Your mammogram demonstrates that you have dense breast tissue, which could hide abnormalities, and if you have other risk factors for breast cancer that have been identified, you might benefit from supp lemental screening tests that may be suggested by your ordering physician. Dense breast tissue, in a nd of itself, is a relatively common condition. This information is not provided to cause undue conc otis, but rather to raise your awareness and to promote discussion with your physician regarding the p resence of other risk factors, in addition to dense breast tissue. A report of your mammography resul ts will be sent to you and your physician. You should contact your physician if you have any questio ns or concerns regarding this report. A mammogram does not have 100% sensitivity and therefore a negative imaging study should not delay fu rther work up of a clinically suspicious abnormality. "Our facility is accredited by the [employer] Mammography [employer]." Electronically signed by: Garth Loaiza MD (01/07/2021 2:22 PM) [place] [id number]
== END ==
LOC: MAMMO 11:04
PROVIDERS: ATTEND Family Medicine
DX: Z12.31 Encounter for screening mammogram for malignant neoplasm of breast (principal)
CPT/HCPCS: 77063; 77067

== ENCOUNTER → 2022-01-18 | Outpatient (CLI) | payer MEDICARE ==
--- NOTE | 2022-01-18 17:22 | RAD ---
Bilateral digital screening 2-D and 3-D (digital breast tomosynthesis) mammogram: Reason for examination: Routine screening. Comparison: Mammograms from 01/07/2021 and 01/04/2020. Interpretation was made with the benefit of CAD. FINDINGS: Breast density: Category B. There are scattered areas of fibroglandular density. No suspicious breast mass, malignant appearing calcifications, or architectural distortion is seen. IMPRESSION: No evidence of malignancy. Assessment: BI-RADS 1. Negative. Recommendation: Routine screening mammograms. The patient will receive a letter with the results in the mail. Patient information will be entered i nto the mammography reminder system with a target recall date for the next mammogram. A reminder dona er will be generated. Electronically signed by: Samia Laws MD (01/18/2022 5:20 PM) [id number]
== END ==
LOC: MAMMO 11:31
PROVIDERS: ATTEND Family Medicine
DX: Z12.31 Encounter for screening mammogram for malignant neoplasm of breast (principal)
CPT/HCPCS: 77063; 77067